=== PATIENT | female | born 1975 | race Caucasian/White ===

== ENCOUNTER 2020-11-26 15:18 | Outpatient (REF) | payer OTHER, SELFPAY | END 2020-11-26 15:19 | disposition home or self-care (01) | LOC: HO.LAB 15:18 | PROVIDERS: PCP Hospitalist; Visit Provider Internal Medicine | DX: Z20.828 Contact with and (suspected) exposure to other viral communicable diseases (principal) | CPT/HCPCS: C9803; U0003 ==

== ENCOUNTER 2020-12-15 08:46 | Outpatient (REF) | payer OTHER, SELFPAY ==
[2020-12-15 10:53] LABS: Hematocrit 39.9 % (37-47); Hemoglobin 12.4 g/dl (12.0-16.0); Mean Corpuscular HGB Conc 31.1 g/dl (31.0-35.0); Mean Corpuscular Hemoglobin 27.1 pg (27.0-33.0); Mean Corpuscular Volume 87.3 fL (80-98); Mean Platelet Volume 11.4 fL (9.4-12.3); Platelet Count 312 X10*3/uL (160-400); Red Blood Count 4.57 X10*6/uL (4.20-5.50); Red Cell Distribution Width 15.3 % (11.0-16.0); White Blood Count 8.6 X10*3/uL (4.8-10.8)
[2020-12-15 11:18] LABS: Alanine Aminotransferase 16 U/L (0-31); Albumin Level 3.8 g/dL (3.5-5.0); Alkaline Phosphatase 96 U/L (39-117); Anion Gap 15 (12-20); Aspartate Amino Transferase 7 U/L (5-31); Bilirubin Direct 0.2 mg/dL (0.0-0.5); Bilirubin Total 0.3 mg/dL (0.0-1.0); Blood Urea Nitrogen 8 mg/dL (9-16); Calcium 9.2 mg/dL (8.4-10.2); Carbon Dioxide 25 mmol/L (22-29); Chloride 103 mmol/L (96-108); Cholesterol 193 mg/dL; Estimated Glomerular Filt Rate > 60; Glucose Fasting 182 mg/dL (60-99); HDL Cholesterol 45 mg/dL; LDL Cholesterol Calculated 105 mg/dl; Potassium 4.8 mmol/l (3.3-5.1); Sodium 138 mmol/L (135-145); Total Protein 6.6 g/dL (6.5-8.0); Triglycerides 219 mg/dL
[2020-12-15 11:40] LABS: TSH reflex Free T4 2.06 mIU/mL (0.32-4.0)
[2020-12-15 12:02] LABS: Creatinine Urine 69.43 mg/dL
== END 2020-12-15 08:47 | disposition home or self-care (01) ==
LOC: HO.WFDLDS 08:46
PROVIDERS: Visit Provider Hospitalist
DX: Z00.00 Encounter for general adult medical examination without abnormal findings (principal); E11.65 Type 2 diabetes mellitus with hyperglycemia
CPT/HCPCS: 36415; 80048; 80061; 80076; 82043; 84443; 85027

== ENCOUNTER 2021-09-03 10:32 | Outpatient (REF) | payer OTHER, SELFPAY ==
--- NOTE | ~2021-09-03 | XR_ITS ---
EXAMINATION: XR ELBOW, RIGHT CLINICAL INFORMATION: Pain COMPARISON: None TECHNIQUE: AP, lateral, and oblique views of the right elbow. FINDINGS: Bone alignment is normal. No acute fracture or dislocation is seen. There is a small soft tissue calcification or ossification adjacent to the medial proximal ulna. This is appreciated on the AP view only. Joint space are normal. There is no joint effusion. XR/XR elbow RT min 3V IMPRESSION: No acute fracture or dislocation. Small soft tissue calcification or ossification adjacent to the medial proximal humerus.
[2021-09-03 14:29] LABS: Estimated Average Glucose 235 mg/dL; Hemoglobin A1c % 9.8 %
== END 2021-09-03 10:33 | disposition home or self-care (01) ==
LOC: HO.WFDLDS 10:32
PROVIDERS: PCP Hospitalist; Visit Provider Hospitalist
DX: E11.65 Type 2 diabetes mellitus with hyperglycemia (principal); M25.521 Pain in right elbow
CPT/HCPCS: 36415; 73080; 83036

== ENCOUNTER → 2021-10-08 10:02 | Outpatient (BNVA) | payer OTHER, SELFPAY | PROVIDERS: PCP Hospitalist; Visit Provider Physician Assistant | DX: Z87.39 Personal history of other diseases of the musculoskeletal system and connective tissue (principal) | CPT/HCPCS: 99202 ==

== ENCOUNTER 2021-10-13 12:26 | Outpatient (REF) | payer OTHER, SELFPAY ==
[2021-10-13 14:31] LABS: Estimated Average Glucose 214 mg/dL; Hemoglobin A1c % 9.1 %
== END 2021-10-13 12:27 | disposition home or self-care (01) ==
LOC: HO.WFDLDS 12:26
PROVIDERS: Visit Provider Hospitalist
DX: E11.65 Type 2 diabetes mellitus with hyperglycemia (principal)
CPT/HCPCS: 36415; 83036

== ENCOUNTER → 2021-11-04 13:25 | Outpatient (BNVA) | payer OTHER, SELFPAY | PROVIDERS: PCP Hospitalist; Visit Provider Orthopaedic Surgery | DX: M65.312 Trigger thumb, left thumb (principal) | CPT/HCPCS: 99202 ==

== ENCOUNTER 2021-11-12 07:30 | Outpatient (RCR) | payer OTHER, SELFPAY ==
--- NOTE | 2021-10-16 15:00 | MHC.OT.OEV ---
[address] [phone] F: [phone] Occupational Therapy Evaluation Diagnosis: Right lateral epicondlyitis Date of Onset: 08/28/21 Attending Provider: ROCIO Hollins Prescribed Treatment: Eval and Treat MD Follow Up Appointment: History of Current Condition: 46 yo female developed pain in her right lateral elbow, worse over the past two months. She was seen by PCP and then referred to [facility]. Gurvinder has given counter force brace and Celebrex and referred to OT. 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, occasional driving and out at field sits Living Situation, Family and/or Social Support: Lives w/ boyfriend and two older children (20's) Current Level of Function and Occupation Self Care, Employment, Leisure: Still does most daily activities, uses dominant left hand/arm and avoids heavy use of right arm Pain Assessment Pain Score: Pain Scale Used: Numeric (0 - 10) Pain Location and Description: 7/10 sharp shooting in right lateral elbow Aggravating Factors: Grasp objects, lifting objects or bags, using the mouse at work Alleviating Factors: Started Celebrex, wears CFB (no positive affect to this point) Massages elbow Nerve assessment Ulnar Nerve: WNL Median Nerve: WNL Radial Nerve: WNL Sensory Assessment Temperature: WNL Light Touch: WNL Proprioception: WNL Edema Assessment Comments: Mild palpable edema to lateral epi/slightly distal to lat epi Dexterity Assessment Dexterity: WNL Special Tests Comments: (+) Cozen's test AROM(PROM) Strength Shoulder Flexion: Extension: Abduction: Internal Rotation: External Rotation: Comments: WFL Flexion: Extension: Abduction: Internal Rotation: External Rotation: Comments: Elbow Flexion: Extension: Pronation: Supination: Comments: WFL Flexion: Extension: Pronation: Supination: Comments: Wrist Flexion: Extension: Ulnar Deviation: Radial Deviation: Comments: WFL Flexion: Extension: Ulnar Deviation: Radial Deviation: Comments: Thumb Thumb CMC Flexion: Thumb MCP Flexion: Thumb IP Flexion: Radial Abduction: Palmar Abduction: Lowes (Kapandji 0-10): Comments: Pt reporting left thumb trigger (worse at night) Digits Index MCP: PIP: DIP: Long MCP: PIP: DIP: Ring MCP: PIP: DIP: Small MCP: PIP: DIP: Comments: WFL Gross Grasp: R 20 L 26 Lateral Pinch: Two-Point Pinch: Three-Jaw Jay Jay: Comments: Pain increases w/ elbow extension Patient Education Primary Language: Malay Hebrew Cantor Required: No Current Knowledge: Understands information with skills for self-management Teaching Method: Demonstration Handouts Verbal Education Needs Identified on Evaluation: ADL's Disease Information Equipment Use Exercise Pain Safety How did patient/family demonstrate learning? Patient demonstrates Patient verbalizes Barriers to Learning: None Readiness for Learning: Accepting Who was educated? Patient Comments: Plan of Care Assessment: 46 yo left hand dominant female presents w/ persistent right lateral elbow pain over the past couple months, worsened with lifting, gripping, mousing and general use of right arm. She has (+) Cozen's test, tenderness to palpate lateral epicondyle and low hiv prevention specialist strength. All s/s consistent w/ acute lateral epicondylitis. She will benefit from course of OT for management of pain, edema and progression of strengthening for optimal gains. 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
--- NOTE | 2021-11-12 08:16 | MHC.OT.DC ---
[address] [phone] F: [phone] Occupational Therapy Discharge Note Provider: Gurvinder Dominguez PA-C Diagnosis: Right lateral epicondlyitis Date of Evaluation: 10/16/21 Date of Discharge: 11/12/21 Treatments to Date: 9 Discharge Status: Achieved Goals Improved Function Independent with HEP Discharge Summary: Martha has overall decreased pain in right lateral elbow, still present w/ full elbow extension and forceful gripping. She is doing well w/ modifications and awareness of aggravating factors, she is Ind w/ home program. Electronically Signed By: VALENTINE Kuo/Arun CHT Reviewed/agree with student documentation: N/A Therapist: Please Sign and return to therapist, thank you for your referral.
== END 2021-11-12 08:26 | disposition home or self-care (01) ==
LOC: HO.OT 07:30
PROVIDERS: PCP Hospitalist; Visit Provider Physician Assistant
DX: Z87.39 Personal history of other diseases of the musculoskeletal system and connective tissue (principal)
CPT/HCPCS: 97033; 97110; 97140; 97165

== ENCOUNTER 2021-11-12 09:29 | Outpatient (REF) | payer OTHER, SELFPAY ==
[2021-11-12 11:16] LABS: Estimated Average Glucose 200 mg/dL; Hemoglobin A1c % 8.6 %
== END 2021-11-12 09:30 | disposition home or self-care (01) ==
LOC: HO.WFDLDS 09:29
PROVIDERS: Visit Provider Hospitalist
DX: E11.65 Type 2 diabetes mellitus with hyperglycemia (principal)
CPT/HCPCS: 36415; 83036

== ENCOUNTER 2022-03-14 08:48 | Emergency (ER) | payer OTHER, SELFPAY ==
[2022-03-14 09:04] VITALS: BP 142/84; PULSE 110; RESP 20; TEMP 36.8; O2SAT 96; BMI 41.3
[2022-03-14] MEDS: Albuterol Sulfate 90 MCG 8 GM INHALER 2 PUFF INHALE (10:23)
[2022-03-14 10:24] VITALS: PULSE 110; RESP 20; O2SAT 96
[2022-03-14 10:34] LABS: Strep A Nucleic Acid Negative (Negative)
[2022-03-14 10:44] LABS: IDNOW Serial# 08D9AD1C; Influenza A Negative (Negative); Influenza B2 Negative (Negative)
[2022-03-14 10:47] LABS: IDNOW Serial# 55D5AD1C
[2022-03-14 10:48] LABS: COVID-19 Test Negative (Negative)
--- NOTE | 2022-03-14 11:17 | ED.GENADULT ---
HPI - General Adult General Chief complaint: General Medical Stated complaint: Cough/Congestion/Sinus infection? Time Seen by Provider: 03/14/22 09:26 Source: patient Mode of arrival: ambulatory Limitations: no limitations History of Present Illness HPI narrative: 36-year-old female presents with fatigue, body aches, itchy throat, cough, runny nose, mild fever at home that started 6 days ago. In addition, patient has of painful left upper loose tooth, she has an appointment with a dentist for an extraction upcoming. No chest pain, no shortness of breath. Related Data Home Medications Medication Instructions Recorded Confirmed blood-glucose meter #1 ea 10/01/20 11/12/21 Previous Rx's Medication Instructions Recorded clotrimazole 1 % topical cream 1 appl TOPICAL BID 28 Days #45 g 04/09/21 blood sugar diagnostic (FreeStyle #200 ea 05/07/21 Lite Strips) lancets 28 gauge #100 ea 09/07/21 lisinopril 10 mg tablet 10 mg PO DAILY #90 tab 10/02/21 glipizide 10 mg tablet 20 mg PO BID #120 tab 10/12/21 atorvastatin 20 mg tablet 20 mg PO DAILY #90 tab 10/13/21 cholecalciferol (vitamin D3) 25 25 mcg PO DAILY #30 cap 10/18/21 mcg (1,000 unit) capsule (Vitamin D3) naproxen 500 mg tablet 500 mg PO BID #60 tab 01/13/22 sitagliptin 25 mg tablet 50 mg PO DAILY 30 Days #60 tab 02/05/22 clindamycin HCl 300 mg capsule 600 mg PO Q6H 10 Days #80 cap 03/14/22 Allergies Allergy/AdvReac Type Severity Reaction Status Date / Time No Known Allergies Allergy Verified 11/12/21 08:43 Review of Systems Constitutional: Constitutional: Reports body ache(s), Denies chills, Reports fatigue, Reports fever(s), Denies headache(s), Denies malaise and Denies weakness Eyes: Eyes: Denies diplopia ENT: Reports dental pain, Denies vertigo, Denies dizziness, Denies otalgia, Reports facial pain, Denies headache(s), Denies mouth pain, Denies post nasal drip, Denies sinus pain, Denies sinus pressure, Reports sore throat and Denies throat swelling Cardiovascular: Cardiovascular: Denies chest pain, Denies syncope, Denies leg edema, Denies lightheadedness, Denies Loss of Consciousness, Denies palpitations and Denies dyspnea Respiratory: Respiratory: Denies chest congestion, Reports cough and Denies dyspnea Gastrointestinal: Gastrointestinal: Denies abdominal pain, Denies hematochezia, Denies constipation, Denies diarrhea, Denies nausea and Denies vomiting Genitourinary: Genitourinary: Reports no additional female genitourinary complaints Musculoskeletal: Musculoskeletal: Reports myalgias Neurologic: Denies confusion, Denies vertigo, Denies dizziness, Denies syncope, Denies headache(s) and Denies weakness Psychiatric: Psychiatric: Denies anxiety, Denies confusion and Denies depression Endocrine: Endocrine: Reports fatigue and Denies palpitations Allergic/Immunologic: Allergic/Immunologic: Denies throat swelling PMFSH Past Medical History Medical History Arthritis of both knees Diabetes Hyperlipidemia Hypertension Surgical History History of section History of cholecystectomy History of tubal ligation S/P trigger finger release Family History Family History Father Medical history unknown Mother Hypertension Son Asthma Social History Social History Housing: House Patient Tobacco Use Status: Former Tobacco user e-Cigarette/Vaping Use: Never Used Second Hand Smoke Exposure: No Advance Directives: No Advance Directives Information Provided: No Patient : No service: No Current occupational status: employed Current occupation: [employer] Cognitive needs: No Hearing needs: No Vision needs: No Physical Exam ED Vital Signs: Vital Signs - 24 hr 03/14/22 09:04 03/14/22 10:24 Temperature 98.3 F Pulse Rate 110 H 110 H Respiratory Rate 20 20 Blood Pressure 142/84 H Pulse Oximetry 96 BMI result Body Mass Index 41.3 Const General: no acute distress, well developed, alert and awake; No confusion Nutritional Appearance: obese Orientation/consciousness: patient oriented x3 and No confusion Limitations: no limitations HENMT Head: Yes normal to inspection, Yes normocephalic and Yes atraumatic Ears: hearing grossly normal bilaterally, external ears normal, TM's normal bilaterally and EAC's normal General nose exam: Normal external nose present Face and sinus: Yes normal facial exam Mouth: Normal oral and palatal mucosa present and moist mucous membranes Teeth and gingiva: gingiva normal and poor dentition Teeth image: 1. loose, tender Throat: Yes postnasal drainage Eyes Conjunctivae: conjunctivae normal Sclerae: sclerae normal Pupils: Equal, round and reactive pupils present EOM: EOMs intact bilaterally Neck Neck: Yes normal visual inspection, Yes full ROM, Yes no lymphadenopathy, Yes no meningeal signs, Yes trachea midline and Yes supple Resp Effort & Inspection: normal respiratory effort and able to speak in complete sentences Auscultation: clear to auscultation bilaterally, no crackles, no rales, no rhonchi and no wheezes Cardio Rate: regular rate Rhythm: regular rhythm GI Inspection: Yes normal to inspection Palpation (GI): Soft to palpation, not firm, nontender, no guarding and not rigid Skin General skin exam: no rashes or lesions noted Neuro General: patient oriented x3, no meningeal signs and No confusion Cranial nerves: Yes Equal, round and reactive pupils present Extrem General: Yes normal to inspection and Yes full ROM Course Course Course Narrative: Patient is negative for strep, flu, COVID, patient loosened tender tooth 13. No abscess noted in mouth, patient can open her jaw all the way, no trismus, no facial swelling, no lymphadenopathy, no drooling. Will start on clindamycin, counseled patient to follow-up with dentist Medical Decision Making Lab Data Labs: Lab Results 03/14/22 03/14/22 03/14/22 Range/Units 10:10 10:10 10:10 COVID-19 (KIAN) Negative (Negative) COVID-19 Clin Com See Note Influenza Type A (BECKY) Negative (Negative) Influenza Type B (BECKY) Negative (Negative) Influenza A & B Note See Note S. pyogenes GrpA BECKY Negative (Negative) Discharge Plan Discharge Clinical Impression: Upper respiratory infection, viral, Abscess, dental Patient Disposition: Home, Self-Care Instructions: Dental Abscess (ED), Upper Respiratory Infection (ED) Additional Instructions: Please call your dentist for follow-up appointment. Please take antibiotics as prescribed. Use salt water gargles, Tylenol, ibuprofen, if you have fevers, few cannot open your mouth, if you have any other new or concerning symptoms, please return to emergency room Prescriptions: New clindamycin HCl 300 mg capsule 600 mg PO Q6H 10 Days Qty: 80 0RF No Action (DME) FreeStyle Lite Strips Strip See Rx Instructions .ROUTE .MEDSUPPLY Qty: 200 4RF Rx Instructions: DX: E11.9. Test Blood Sugar Twice A Day. 90 day supply (DME) lancets 28 gauge misc See Rx Instructions ea topical BID Qty: 100 5RF Rx Instructions: glucose checks 2 times daily lisinopril 10 mg tablet 10 mg PO DAILY Qty: 90 1RF glipizide 10 mg tablet 20 mg PO BID Qty: 120 1RF cholecalciferol (vitamin D3) [Vitamin D3] 25 mcg (1,000 unit) capsule 25 mcg PO DAILY Qty: 30 5RF naproxen 500 mg tablet 500 mg PO BID Qty: 60 2RF sitagliptin 25 mg tablet 50 mg PO DAILY 30 Days Qty: 60 5RF clotrimazole 1 % cream 1 appl topical BID 28 Days Qty: 45 1RF (DME) blood-glucose meter Kit See Rx Instructions ea .ROUTE BID Qty: 1 0RF Rx Instructions: As directed atorvastatin 20 mg tablet 20 mg PO DAILY Qty: 90 1RF Stand Alone Forms: Work/School Release
[2022-03-14 11:30] VITALS: BP 171/93; PULSE 104; RESP 18; O2SAT 98
== END 2022-03-14 11:37 | disposition home or self-care (01) ==
PROVIDERS: Physician Assistant; Emergency Provider Emergency Medicine; PCP Hospitalist
DX: J06.9 Acute upper respiratory infection, unspecified (principal); K04.7 Periapical abscess without sinus; E11.9 Type 2 diabetes mellitus without complications; I10 Essential (primary) hypertension; Z20.822 Contact with and (suspected) exposure to COVID-19
CPT/HCPCS: 87502; 87635; 87651; 94640; 94664; 99283; 99284

== ENCOUNTER 2022-11-25 15:38 | Outpatient (REF) | payer OTHER, SELFPAY ==
--- NOTE | ~2022-11-25 | MM_ITS ---
EXAMINATION: MM SCREENING DIGITAL BREAST TOMOSYNTHESIS, BILATERAL CLINICAL INFORMATION: Screening. Asymptomatic. The lifetime risk of breast cancer based on the Tyrer-Cuzick Model is 8.4%. COMPARISON: Mammography: March 16, 2019 and studies dating back to November 14, 2015 TECHNIQUE: Digital breast tomosynthesis is performed in both the craniocaudal and mediolateral oblique views along with computer-aided detection (CAD). Synthesized 2D images are generated from the tomosynthesis. FINDINGS: The breasts are extremely dense, which lowers the sensitivity of mammography (ACR BI-RADS breast composition Category d). There are no significant masses, abnormal calcifications, or other abnormalities. MM/MM tomosynthesis screening BI IMPRESSION: No significant changes from prior exam. ASSESSMENT: BI-RADS 1: Negative RECOMMENDATION: Routine annual mammography screening. This patient's information was entered into a reminder system with a target due date for their next mammogram.
== END 2022-11-25 15:39 | disposition home or self-care (01) ==
LOC: HO.MAMMO 15:38
PROVIDERS: PCP Hospitalist; Visit Provider Hospitalist
DX: Z12.31 Encounter for screening mammogram for malignant neoplasm of breast (principal)
CPT/HCPCS: 77063; 77067

== ENCOUNTER 2023-02-14 10:24 | Outpatient (REF) | payer OTHER, SELFPAY ==
[2023-02-14 12:19] LABS: Estimated Average Glucose 232 mg/dL; Hemoglobin A1c % 9.7 %
== END 2023-02-14 10:25 | disposition home or self-care (01) ==
LOC: HO.WFDLDS 10:24
PROVIDERS: Visit Provider Hospitalist
DX: E11.65 Type 2 diabetes mellitus with hyperglycemia (principal)
CPT/HCPCS: 36415; 83036

== ENCOUNTER 2023-12-01 15:31 | Outpatient (REF) | payer OTHER, SELFPAY | END 2023-12-01 15:32 | disposition home or self-care (01) | LOC: HO.MAMMO 15:31 | PROVIDERS: PCP Nurse Practitioner Family; Visit Provider Hospitalist | DX: Z12.31 Encounter for screening mammogram for malignant neoplasm of breast (principal) | CPT/HCPCS: 77063; 77067 ==

== ENCOUNTER → 2023-12-01 15:45 | Outpatient (BNV) | payer OTHER, SELFPAY | PROVIDERS: PCP Nurse Practitioner Family; Visit Provider Radiology Diagnostic Radiology | DX: Z12.31 Encounter for screening mammogram for malignant neoplasm of breast (principal) | CPT/HCPCS: 77063; 77067 ==

== ENCOUNTER 2024-03-12 11:34 | Outpatient (AMB) | payer OTHER, SELFPAY ==
[2024-03-12 11:44] VITALS: BP 120/72; PULSE 84; O2SAT 98; BMI 37.8
--- NOTE | 2024-03-12 11:44 | A.OFFPC_ITS ---
Vital Signs 03/12/24 11:44 Height 4 ft 11 in Weight 187 lb 6 oz BMI 37.8 BP 120/72 Pulse 84 Pulse Source Pulse Oximeter Pulse Oximetry (%) 98 Oxygen Delivery Method Room Air Intake Visit Reasons: Transfer from , follow up on Diabetes Intake Note: Patient is here as a transfer of care from [facility]. Allergies No Known Allergies Allergy (Verified 03/12/24 11:46) Medication List - Last Reconciled 03/12/24 by Braden Scott MD atorvastatin 20 mg PO DAILY blood sugar diagnostic (FreeStyle Lite Strips) DX: E11.9. Test Blood Sugar Twice A Day. 90 day supply blood-glucose meter As directed cholecalciferol (vitamin D3) (Vitamin D3) 25 mcg PO DAILY glipizide 20 mg (2 x 10 mg) PO BID 3 months lancets glucose checks 2 times daily and as needed for s/s of dm lisinopril 10 mg PO DAILY naproxen 500 mg PO BID semaglutide (Ozempic) 0.25 mg subcut QWEEK Tobacco use date assessed: 03/12/24 HPI Transfer from , follow up on Diabetes HPI Details New patient/Transfer of Care Prior PCP:? Last office visit/CPE: Acute issue(s): A1c 9.6% -Had recently started taking ozempic ins tead of Trulicity. -Had low blood sugars when she started T rulicity but she is on glipizide 20mg as well. PMHx: DM, HTN, HLD, Vit D def., Arthritis b/L knees SurgHx: x 2. GB. Tubal Ligation. R thumb surgery FHx: Mom: HLD, Arthritis. Dad: Unknown. SocHx: Smoking <1/2ppd. PFSH Medical History Hyperlipidemia Hypertension Diabetes Arthritis of both knees Surgical History S/P trigger finger release History of cholecystectomy History of tubal ligation History of section Family History Father Medical history unknown Mother Hypertension Son Asthma Social History Housing: House Patient Tobacco Use Status: Current everyday Tobacco user Cigarettes Per Day: 7 e-Cigarette/Vaping Use: Never Used Second Hand Smoke Exposure: No service: No Current occupational status: employed Current occupation: [employer] Cognitive needs: No Hearing needs: No Vision needs: No Questionnaire PHQ-9 Over the last 2 weeks, how often have you been bothered by any of the following problems? 1. Little interest or pleasure in doing things: several days 2. Feeling down, depressed, or hopeless: several days 3. Trouble falling or staying asleep, or sleeping too much: more than half the days 4. Feeling tired or having little energy: not at all 5. Poor appetite or overeating: several days 6. Feeling bad about yourself - or that you are a failure or have let yourself or your family down: not at all 7. Trouble concentrating on things, such as reading the newspaper or watching television: several days 8. Moving or speaking so slowly that other people could have noticed. Or the opposite - being so fidgety or restless that you have been moving around a lot more than usual: not at all 9. Thoughts that you would be better off or of hurting yourself in some way: not at all Total score: 6 Depression Screening Interpretation: Positive Depression Screening Done: Yes 95395 - PHQ-9 Billing: Yes Source: Developed by Drs. Scar Boone, Delfina Marquis, Gurinder Bradley and colleagues, with an educational niki from [employer]. Thrive Questionnaire Date Thrive assessed: 03/12/24 I am a: Patient What is your living situation today?: I have a steady place to live Within the past 12 months, did the food you bought not last and you didn't have the money to get more?: Never true Within the past 12 months, did you worry whether your food would run out before you got money to buy more?: Never true Do you have trouble paying for medicines?: Yes Do you have trouble getting transportation to medical appointments?: No Do you have trouble paying your heating and electricity bill?: No Do you have trouble taking care of your child, family member or friend?: No Do you have trouble with day-to-day activities such as bathing, preparing meals, shopping, managing finances, etc.?: No Are you currently unemployed and looking for a job?: No Are you interested in more education?: No THRIVE Score: 0 AUDIT C Alcohol Use Questionnaire (AUDIT-C) 1. How often do you have a drink containing alcohol?: Monthly or less 2. How many drinks containing alcohol do you have on a typical day when you are drinking?: 1 or 2 3. How often do you have six or more drinks on one occasion?: Never Total Score: 1 YARIEL-7 AMB Questionnaire YARIEL-7 Date YARIEL - 7 assessed: 03/12/24 Feeling nervous, anxious, or on edge: 3 = Nearly every day Not being able to stop or control worryin = Nearly every day Worrying too much about different things: 3 = Nearly every day Trouble relaxin = Nearly every day Being so restless that it is hard to sit still: 0 = Not at all Becoming easily annoyed or irritable: 3 = Nearly every day Feeling afraid as if something awful might happen: 0 = Not at all Total YARIEL-7 score (0-4 normal; 5-9 mild; 10-14 moderate; 15-21 severe): 15 Source: Developed by Drs. Scar Boone, Delfina Marquis, Gurinder Bradley and colleagues, with an educational niki from [employer]. YARIEL-7 Assessment Billing YARIEL-7 Assessment Tool: YARIEL-7 Assessment 45871 Review of Systems Const Denies chills, Denies fatigue, Denies fever(s), Denies headache(s) and Denies weakness ENT Denies dizziness and Denies headache(s) Card Denies dyspnea Resp Denies cough, Denies dyspnea, Denies wheezing and Denies other (shortness of breath) Musc Denies numbness and Denies tingling Neuro Denies dizziness, Denies headache(s), Denies numbness, Denies tingling and Denies weakness Psych Reports anxiety Endo Denies fatigue, Reports polydipsia and Reports polyuria Aller/Immun Denies wheezing Physical exam (Primary Care) BMI result Body Mass Index 37.8 Tobacco/Smoking Status: Tobacco use Status Tobacco use date assessed 09/03/21 03/12/24 11:47 Patient Tobacco Use Status Former Tobacco user 03/12/24 11:47 e-Cigarette/Vaping Use Never Used 03/12/24 11:47 PHQ-9: PHQ-9 Score PHQ-9: Total score 6 03/12/24 11:54 Depression Screening Interpretation: Positive Thrive Assessment: Date of Thrive Assessment Date Thrive assessed 11/12/21 03/12/24 11:47 Const General: well developed; No acute distress Nutritional Appearance: well nourished Orientation/consciousness: patient oriented x3 HENMT Head: Yes normocephalic and Yes atraumatic Eyes General: appearance normal, both eyes and all related structures Pupils: Equal, round and reactive pupils present EOM: EOMs intact bilaterally Resp Effort & Inspection: normal respiratory effort Auscultation: clear to auscultation bilaterally Cardio Rate: regular rate Rhythm: regular rhythm Heart sounds: S1 normal heart sound present, S2 normal heart sound present, no gallops, no murmurs and no rubs Neuro General: patient oriented x3 and gait normal Cranial nerves: Yes Equal, round and reactive pupils present Psych Affect: normal affect Assessment and Plan Assessment & Plan (1) Diabetes: Code(s): E11.9 - Type 2 diabetes mellitus without complications Plan: Uncontrolled?diabetes?though?she?did?just?start?taking?Ozempic?rather?than?[facility]. Had?had?some?low?blood?sugars?[facility] Currently,?morning?blood?sugars?are?in high?200s Continue?current?medication?regimen.??Eat?regular?meals - diabetic?diet, and?we?will?adjust?her?medications?rather?than?meals. Call?endocrinology?to?make?an?appointment Close?follow-up?in?a?month (2) Hypertension: Code(s): I10 - Essential (primary) hypertension Plan: Blood?pressure?is?controlled.??Goal?is?less?than?140/90 Continue?lisinopril (3) Hyperlipidemia: Code(s): E78.5 - Hyperlipidemia, unspecified Plan: On?atorvastatin Check?lipid (4) Obesity (BMI 30-39.9): Code(s): E66.9 - Obesity, unspecified Plan: Encouraged?weight?loss Will?follow Continue?Ozempic (5) Vitamin D deficiency: Code(s): E55.9 - Vitamin D deficiency, unspecified Plan: Check?vitamin-D?level (6) Anxiety: Code(s): F41.9 - Anxiety disorder, unspecified Plan: Trial?bupropion?which?may?also?help?with?smoking?cessation (7) Smoker: Code(s): F17.200 - Nicotine dependence, unspecified, uncomplicated Plan: Smoking?less?than?half?pack?per?day Trial?bupropion Trial?Nicorette?lozenges (8) Arthritis of both knees: Code(s): M17.0 - Bilateral primary osteoarthritis of knee Plan: We?can?discuss?further?at?upcoming?appointment Encouraged?weight (9) Laboratory exam ordered as part of routine general medical examination: Code(s): Z00.00 - Encounter for general adult medical examination without abnormal findings Plan: Check?lab Orders: Orders Comprehensive [place]. Panel Fast Today Z00.00 - Encounter for general adult medical examination without abnormal findings Lipid Panel Today Z00.00 - Encounter for general adult medical examination without abnormal findings Microalbumin, Random (w Creat) Today I10 - Essential (primary) hypertension TSH reflex Free T4 Today Z00.00 - Encounter for general adult medical examination without abnormal findings UA and rflx microscopic Today Z00.00 - Encounter for general adult medical examination without abnormal findings Vitamin D 25-OH Total Today E55.9 - Vitamin D deficiency, unspecified Medications: New bupropion HCl 75 mg PO QAM 30 days 30 tabs 1RF nicotine (polacrilex) (Nicorette) 2 mg buccal Q8H 28 days PRN 72 ea 1RF nicotine cravings Coding Level of Care Code Est Pt Level 4 (07873) Diagnoses Diabetes E11.9 Hypertension I10 Hyperlipidemia E78.5 Obesity (BMI 30-39.9) E66.9 Vitamin D deficiency E55.9 Anxiety F41.9 Smoker F17.200 Arthritis of both knees M17.0 Laboratory exam ordered as part of routine general medical examination Z00.00 Additional Codes YARIEL-7 Assessment Billing - YARIEL-7 Assessment Tool: YARIEL-7 Assessment [id number] ([id number])
== END 2024-03-12 12:46 | disposition home or self-care (01) ==
PROVIDERS: PCP Nurse Practitioner Family; Visit Provider Family Medicine
DX: E11.69 Type 2 diabetes mellitus with other specified complication (principal); E66.9 Obesity, unspecified; Z68.37 Body mass index [BMI] 37.0-37.9, adult; I10 Essential (primary) hypertension; F41.9 Anxiety disorder, unspecified; E78.5 Hyperlipidemia, unspecified; E55.9 Vitamin D deficiency, unspecified; F17.210 Nicotine dependence, cigarettes, uncomplicated; M17.0 Bilateral primary osteoarthritis of knee
CPT/HCPCS: 96127; 99214

== ENCOUNTER 2024-03-12 12:34 | Outpatient (REF) | payer OTHER, SELFPAY ==
[2024-03-12 13:56] LABS: Appearance Urine Clear; Color Urine Dark Yellow; Glucose Urine UA Negative (Negative); Leukocyte Esterase Urine Negative (Negative); Nitrite Urine Negative (Negative); PH 5.5 (5.0-9.0); Specific Gravity - Urine 1.025 (1.005-1.025); Urine Blood Negative (Negative); Urine Ketones Negative (Negative); Urine Protein Negative (Neg-Trace)
[2024-03-12 14:19] LABS: Creatinine Urine 233.75 mg/dL; Microalbum/Creatinine Ratio Ur 7.7 ug/mg cr (<30)
[2024-03-12 14:25] LABS: Alanine Aminotransferase 21 U/L (0-31); Alkaline Phosphatase 137 U/L (39-117); Anion Gap 11 (12-20); Aspartate Amino Transferase 10 U/L (5-31); Bilirubin Total 0.4 mg/dL (0.0-1.0); Blood Urea Nitrogen 12 mg/dL (9-16); Calcium 10.2 mg/dL (8.4-10.2); Carbon Dioxide 24 mmol/L (22-29); Chloride 107 mmol/L (96-108); Cholesterol 212 mg/dL (<200); Estimated Glomerular Filt Rate > 60; Glucose Fasting 179 mg/dL (60-99); HDL Cholesterol 42 mg/dL (>40); LDL Cholesterol Calculated 123 mg/dL (<100); Sodium 138 mmol/L (135-145); Total Protein 7.1 g/dL (6.5-8.0); Triglycerides 239 mg/dL (<150)
[2024-03-12 14:41] LABS: TSH reflex Free T4 1.22 uIU/mL (0.32-4.0); Vitamin D 25-OH Total 35.9 ng/mL (>30)
== END 2024-03-12 12:35 | disposition home or self-care (01) ==
LOC: HO.WFDLDS 12:34
PROVIDERS: Visit Provider Family Medicine
DX: Z00.00 Encounter for general adult medical examination without abnormal findings (principal); I10 Essential (primary) hypertension; E55.9 Vitamin D deficiency, unspecified
CPT/HCPCS: 36415; 80053; 80061; 81003; 82043; 82306; 82570; 84443

== ENCOUNTER 2024-04-12 13:53 | Outpatient (AMB) | payer OTHER, SELFPAY ==
[2024-04-12 14:03] VITALS: BP 120/74; PULSE 87; O2SAT 98; BMI 37.9
--- NOTE | 2024-04-12 14:03 | A.OFFPC_ITS ---
Vital Signs 04/12/24 14:03 Height 4 ft 11 in Weight 187 lb 8 oz BMI 37.9 BP 120/74 Blood Pressure Location Lt brachial Position Sitting Pulse 87 Pulse Source Pulse Oximeter Pulse Oximetry (%) 98 Oxygen Delivery Method Room Air Intake Visit Reasons: CPE with f/u labs and health maint. Intake Note: Patient is here for her physical today, and to follow up on labs. Allergies No Known Allergies Allergy (Verified 04/12/24 14:06) Medication List - Last Reconciled 04/12/24 by Braden Scott MD atorvastatin 20 mg PO DAILY blood sugar diagnostic (FreeStyle Lite Strips) DX: E11.9. Test Blood Sugar Twice A Day. 90 day supply blood-glucose meter As directed bupropion HCl 75 mg PO QAM 30 days cholecalciferol (vitamin D3) (Vitamin D3) 25 mcg PO DAILY glipizide 20 mg (2 x 10 mg) PO BID 3 months lancets glucose checks 2 times daily and as needed for s/s of dm lisinopril 10 mg PO DAILY naproxen 500 mg PO BID nicotine (polacrilex) (Nicorette) 2 mg buccal Q8H PRN 28 days semaglutide (Ozempic) 0.25 mg subcut QWEEK Tobacco use date assessed: 04/12/24 Dental Screening Dental Screen Date: 04/12/24 Did you have a dental visit in the last 12 months?: Yes Did you have a dental problem in the last 6 months where you did not have access to dental care?: No Was dental information given to patient?: Patient has dentist HPI CPE with f/u labs and health maint. HPI Details 48 y/o female presents for a CPE with f/ u labs and health maintenance. Labs were drawn 03/12/24. Reviewed labs with pt. Triglycerides 239. TC 212. LDL 123. HDL 42. She is on artovastatin 20mg daily. Blood pressure today 120/74. She is on lisinopril 10mg daily. Pt notes last mammogram was normal. Last pap smear was at [facility] which she thinks was this year. She notes she thinks it was normal. She states she is in the process of reaching menopause. She notes night sweats, mood swings, difficulty sleeping. [facility] Medical History Hyperlipidemia Hypertension Diabetes Arthritis of both knees Surgical History S/P trigger finger release History of cholecystectomy History of tubal ligation History of section Family History (Updated 04/12/24 @ 14:09 by Camila Rodríguez CMA) Father Medical history unknown Mother Hypertension Son Asthma Social History Housing: House Patient Tobacco Use Status: Current everyday Tobacco user Cigarettes Per Day: 7 e-Cigarette/Vaping Use: Never Used Second Hand Smoke Exposure: No service: No Current occupational status: employed Current occupation: [employer] Cognitive needs: No Hearing needs: No Vision needs: No Questionnaire Thrive Questionnaire Date Thrive assessed: 03/12/24 YARIEL-7 AMB Questionnaire YARIEL-7 Date YARIEL - 7 assessed: 03/12/24 Source: Developed by Drs. Scar Boone, Delfina Marquis, Gurinder Bradley and colleagues, with an educational niki from [employer] Review of Systems Const Denies chills, Denies fatigue, Denies fever(s), Denies headache(s) and Denies weakness Eyes Denies change in vision ENT Denies dizziness, Denies headache(s), Denies hearing loss, Denies nasal con gestion, Denies sinus pain, Denies sinus pressure and Denies sore throat Card Denies chest pain, Denies lightheadedness, Denies dyspnea and Denies other (palpitations) Resp Denies cough, Denies dyspnea and Denies wheezing GI Denies abdominal pain, Denies melena, Denies hematochezia, Denies change in bowel habits, Denies dyspepsia and Denies nausea Denies hematuria and Denies dysuria Musc Denies abnormal gait, Denies myalgias, Denies arthralgias, Denies numbness and Denies tingling Skin/Breast Denies rash, Denies unusual bruising and Denies wounds Neuro Denies abnormal gait, Denies dizziness, Denies headache(s), Denies memory loss, Denies numbness, Denies Sensory deficit (Neuro), Denies tingling and Denies weakness Psych Denies anxiety, Denies depression and Denies memory loss Endo Denies cold intolerance, Denies fatigue, Denies heat intolerance, Denies polydipsia and Denies polyuria Herson/Lymph Denies easy bleeding and Denies easy bruising Aller/Immun Denies wheezing Physical exam (Primary Care) Vital Signs: Last Vital Signs Pulse 87 04/12/24 14:03 BP 120/74 04/12/24 14:03 Pulse Ox 98 04/12/24 14:03 Oxygen Delivery Method Room Air 04/12/24 14:03 BMI result Body Mass Index 37.9 Tobacco/Smoking Status: Tobacco use Status Tobacco use date assessed 04/12/24 04/12/24 14:12 Patient Tobacco Use Status Current everyday Tobacco 04/12/24 14:12 e-Cigarette/Vaping Use Never Used 04/12/24 14:12 Thrive Assessment: Date of Thrive Assessment Date Thrive assessed 03/12/24 04/12/24 14:12 Const General: no acute distress, well developed, alert and awake Nutritional Appearance: well nourished and obese Orientation/consciousness: patient oriented x3 HENMT Head: Yes normocephalic and Yes atraumatic Ears: hearing grossly normal bilaterally and TM's normal bilaterally General nose exam: Normal external nose present and Normal nares present Mouth: Normal oral and palatal mucosa present and moist mucous membranes Teeth and gingiva: dentition normal Throat: Yes posterior oropharynx normal Eyes General: appearance normal, both eyes and all related structures Pupils: Equal, round and reactive pupils present and Pupil accommodation reflex normal EOM: EOMs intact bilaterally Neck Neck: Yes normal visual inspection, Yes no lymphadenopathy and Yes trachea midline Thyroid: Thyroid normal Carotids: no bruits Lymphatic: no lymphadenopathy noted Chest Chest palpation & inspection: normal inspection of the chest Resp Effort & Inspection: normal respiratory effort Auscultation: clear to auscultation bilaterally Cardio Rate: regular rate Rhythm: regular rhythm Heart sounds: S1 normal heart sound present, S2 normal heart sound present, no gallops, no murmurs and no rubs Bruits: no abdominal aortic bruits and no carotid bruits GI Palpation (GI): No Abdominal aortic bruit present, Soft to palpation, nontender, No hepatosplenomegaly present and No Rebound tenderness present Auscultation: normal bowel sounds General: Yes no CVA tenderness Back/Spine/Pelvis Back: no CVA tenderness Cervical Spine: cervical ROM normal and No Cervical spine tenderness Thoracic/Lumbar Spine: thoraco-lumbar ROM normal, No pain with thoraco-lumbar ROM, No thoracic spinal tenderness and No lumbar spinal tenderness Skin Lesions: no lesions Rashes: no rashes Trauma: no lacerations or abrasions Wounds: no wounds Nails: normal Neuro General: patient oriented x3 Cranial nerves: Yes Equal, round and reactive pupils present Cognition (Neuro): normal cognition Gait exam (Neuro): Normal gait present Motor exam (neuro): 5/5 motor strength present throughout Sensory Exam: No Sensory deficit (Neuro) Deep tendon reflexes (DTR's): Right patellar reflex intensity grade: 2+ and Left patellar reflex intensity grade: 2+ Extrem General: Yes normal to inspection and No edema Psych Appearance: grossly normal Affect: normal affect Attitude: cooperative Thought process: Normal thought process present Assessment and Plan Assessment & Plan (1) Adult general medical exam: Code(s): Z00.00 - Encounter for general adult medical examination without abnormal findings Plan: 48-year-old?female?presents?for?complete?physical?exam Encouraged?healthy?diet?with?active?lifestyle?and?plenty?of?exercise (2) Hypertension: Code(s): I10 - Essential (primary) hypertension Plan: Blood?pressure?is?well?controlled.??Goal?is?less?than?140/90 Continue?current?medication?regimen (3) Diabetes: Code(s): E11.9 - Type 2 diabetes mellitus without complications Plan: A1c?had?been?poorly?controlled?when?checked?in?January She?had?had?difficulty?getting?Trulicity. Now?taking?Ozempic?and?tolerating?this.??She?can?call?for?an?increase?in?her?dos e?when?she?is?due?for?her?next?refill, if?she?is?tolerating?it?well. Blood?sugars?are?improving Recent?eye?exam (4) Screening for colon cancer: Code(s): Z12.11 - Encounter for screening for malignant neoplasm of colon Plan: Patient?had?colonoscopy?this?year?and?had?1?polyp?and?was?told?to?follow-up?in?5 ?years;?2028 Will?request?report (5) Hot flashes: Code(s): R23.2 - Flushing Plan: Her?on site wastewater systems technician?has?given?her?bupropion Follow-up?with?OBGYN (6) Screening for cervical cancer: Code(s): Z12.4 - Encounter for screening for malignant neoplasm of cervix Plan: Patient?had?Pap?smear?this?year?with?her?on site wastewater systems technician Follow-up?with?on site wastewater systems technician?as?recommend (7) Breast cancer screening by mammogram: Code(s): Z12.31 - Encounter for screening mammogram for malignant neoplasm of breast Plan: Mammogram?was?negative?for?malignancies?and?recommended?annual?screen (8) Elevated cholesterol with high triglycerides: Code(s): E78.2 - Mixed hyperlipidemia Plan: Increasing?atorvastatin?from?20?mg?daily?to?40?mg?daily Medications: Changed From atorvastatin 20 mg PO DAILY 90 tabs 3RF To atorvastatin 40 mg PO DAILY 90 days 90 tabs 3RF Coding Level of Care Code Est Pt Level 3 (26422) Est Pt Prev Care 40-64y(69511) Diagnoses Adult general medical exam Z00.00 Hypertension I10 Diabetes E11.9 Screening for colon cancer Z12.11 Hot flashes R23.2 Screening for cervical cancer Z12.4 Breast cancer screening by mammogram Z12.31 Elevated cholesterol with high triglycerides E78.2
== END 2024-04-12 15:04 | disposition home or self-care (01) ==
PROVIDERS: PCP Nurse Practitioner Family; Visit Provider Family Medicine
DX: Z00.00 Encounter for general adult medical examination without abnormal findings (principal); I10 Essential (primary) hypertension; E11.9 Type 2 diabetes mellitus without complications; R23.2 Flushing; E78.2 Mixed hyperlipidemia; Z12.11 Encounter for screening for malignant neoplasm of colon; Z12.31 Encounter for screening mammogram for malignant neoplasm of breast
CPT/HCPCS: 99213; 99396

== ENCOUNTER 2024-07-16 09:51 | Outpatient (AMB) | payer OTHER, SELFPAY ==
--- NOTE | 2024-07-16 09:55 | A.OFFPC_ITS ---
Vital Signs 07/16/24 09:59 Height 4 ft 11 in Weight 187 lb BMI 37.8 BP 120/60 Blood Pressure Location Rt brachial Position Sitting Respiration 16 Pulse 86 Pulse Source Pulse Oximeter Temp 98 F Temp Source Tympanic Pulse Oximetry (%) 96 Oxygen Delivery Method Room Air Intake Visit Reasons: f/u diabetes Intake Note: follow up for diabetes Allergies No Known Allergies Allergy (Verified 07/16/24 09:56) Medication List - Last Reconciled 07/16/24 by Braden Scott MD atorvastatin 40 mg PO DAILY 90 days blood sugar diagnostic (FreeStyle Lite Strips) DX: E11.9. Test Blood Sugar Twice A Day. 90 day supply blood-glucose meter As directed cholecalciferol (vitamin D3) (Vitamin D3) 25 mcg PO DAILY flash glucose scanning reader ([employer]ured SolutionsStyle Vahid 2 Mobile) To monitor glucose, As directed, 999 days flash glucose sensor (FreeStyle Vahid 2 Sensor kit) To monitor blood sugar continuously for 14 days, As directed glipizide 20 mg (2 x 10 mg) PO BID 3 months lancets glucose checks 2 times daily and as needed for s/s of dm lisinopril 10 mg PO DAILY naproxen 500 mg PO BID nicotine (polacrilex) (Nicorette) 2 mg buccal Q8H PRN 28 days semaglutide 1 mg (0.75 mL) subcut QWEEK 28 days Tobacco use date assessed: 04/12/24 Dental Screening Dental Screen Date: 04/12/24 HPI f/u diabetes HPI Details 48 y/o female presents to f/u diabetes. Last A1c in January 9.7% 2022. She had noted difficulty getting Trulicity and had started her on ozempic. A1c today 7.2%. Had noted episodes of low blood sugars in the evenings. Blood pressure today 120/60. She is on lisinopril 10mg daily. [facility] Medical History Hyperlipidemia Hypertension Diabetes Arthritis of both knees Surgical History S/P trigger finger release History of cholecystectomy History of tubal ligation History of section Family History (Updated 04/12/24 @ 14:09 by Camila Rodríguez CMA) Father Medical history unknown Mother Hypertension Son Asthma Social History (Reviewed 04/12/24 @ 14:08 by Camila Rodríguez [facility]) Housing: House Patient Tobacco Use Status: Current everyday Tobacco user Cigarettes Per Day: 7 e-Cigarette/Vaping Use: Never Used Second Hand Smoke Exposure: No service: No Current occupational status: employed Current occupation: [employer] Cognitive needs: No Hearing needs: No Vision needs: No Questionnaire Thrive Questionnaire Date Thrive assessed: 03/12/24 YARIEL-7 AMB Questionnaire YARIEL-7 Date YARIEL - 7 assessed: 03/12/24 Source: Developed by Drs. Scar Boone, Delfina Marquis, Gurinder Bradley and colleagues, with an educational niki from [employer]. Review of Systems Const Denies chills, Denies fatigue, Denies fever(s), Denies headache(s) and Denies weakness ENT Denies dizziness and Denies headache(s) Card Denies dyspnea Resp Denies cough, Denies dyspnea, Denies wheezing and Denies other (shortness of breath) Musc Denies numbness and Denies tingling Neuro Denies dizziness, Denies headache(s), Denies numbness, Denies tingling and Denies weakness Psych Denies anxiety and Denies depression Endo Denies fatigue Aller/Immun Denies wheezing Physical exam (Primary Care) Vital Signs: Last Vital Signs Temp 98 F 07/16/24 09:59 Pulse 86 07/16/24 09:59 Resp 16 07/16/24 09:59 BP 120/60 07/16/24 09:59 Pulse Ox 96 07/16/24 09:59 Oxygen Delivery Method Room Air 07/16/24 09:59 BMI result Body Mass Index 37.8 Tobacco/Smoking Status: Tobacco use Status Tobacco use date assessed 04/12/24 07/16/24 09:56 Patient Tobacco Use Status Current everyday Tobacco 07/16/24 09:56 e-Cigarette/Vaping Use Never Used 07/16/24 09:56 Thrive Assessment: Date of Thrive Assessment Date Thrive assessed 03/12/24 07/16/24 09:56 Const General: well developed; No acute distress Nutritional Appearance: obese Orientation/consciousness: patient oriented x3 HENMT Head: Yes normocephalic and Yes atraumatic Eyes General: appearance normal, both eyes and all related structures Pupils: Equal, round and reactive pupils present EOM: EOMs intact bilaterally Resp Effort & Inspection: normal respiratory effort Neuro General: patient oriented x3 and gait normal Cranial nerves: Yes Equal, round and reactive pupils present Psych Affect: normal affect Assessment and Plan Assessment & Plan (1) Diabetes: Code(s): E11.9 - Type 2 diabetes mellitus without complications Plan: A1c?now?7.2%.??Much?improved. ?Goal?is?less?than?7.0% She?has?had?a?couple?of?episodes?where?she?felt?like?she?was?having?low?blood?monroe gars.??She?has?decreased?her?evening?glipizide?dose?to?1?tablet ?and?I?encouraged?her?to?take?this?prior?to?her?dinnertime. She?can?decrease?further?as?needed Continue?Ozempic?as?prescribed?and?we?will?continue?to?bring?this?up?as?needed.? ?Likely?increasing?again ?at?her?next?visit?while?decreasing?or?discontinuing?glipizide. Continue?diabetic?diet (2) Hypertension: Code(s): I10 - Essential (primary) hypertension Plan: Blood?pressure?is?controlled.??Goal?is?less?than?140/90 Continue?current?medication?regimen (3) BMI 35.0-35.9,adult: Code(s): Z68.35 - Body mass index [BMI] 35.0-35.9, adult Plan: Patient?is?interested?in?liposuction. S he?will?discuss?with?surgeon?and?come?back?for?preoperative?clearance?when?she?i s?ready Medications: Changed From glipizide 20 mg (2 x 10 mg) PO BID 3 months 360 tabs 4RF E11.65 - Type 2 diabetes mellitus with hyperglycemia To glipizide 2 tabs in AM and 1 tab at dinner time orally 2 times a day; 3 months 270 tabs 4RF E11.65 - Type 2 diabetes mellitus with hyperglycemia Refilled glipizide 20 mg (2 x 10 mg) PO BID 3 months 360 tabs 4RF E11.65 - Type 2 diabetes mellitus with hyperglycemia Coding Level of Care Code Est Pt Level 4 (46756) Diagnoses Diabetes E11.9 Hypertension I10 BMI 35.0-35.9,adult Z68.35
[2024-07-16 09:59] VITALS: BP 120/60; PULSE 86; RESP 16; TEMP 36.6; O2SAT 96; BMI 37.8
== END 2024-07-16 10:32 | disposition home or self-care (01) ==
PROVIDERS: PCP Family Medicine; Visit Provider Family Medicine
DX: E11.9 Type 2 diabetes mellitus without complications (principal); I10 Essential (primary) hypertension; Z68.35 Body mass index [BMI] 35.0-35.9, adult
CPT/HCPCS: 99214

== ENCOUNTER 2024-10-18 08:33 | Outpatient (AMB) | payer OTHER, SELFPAY ==
--- NOTE | 2024-10-18 08:47 | A.OFFPC_ITS ---
Vital Signs 10/18/24 08:48 Height 4 ft 11 in Weight 186 lb 4 oz BMI 37.6 BP 130/76 Blood Pressure Location Rt brachial Position Sitting Respiration 14 Pulse 92 Pulse Source Pulse Oximeter Temp 98.2 F Temp Source Oral Pulse Oximetry (%) 99 Oxygen Delivery Method Room Air Intake Visit Reasons: f/u diabetes, htn Intake Note: f/u dm and htn Allergies No Known Allergies Allergy (Verified 10/18/24 08:47) Medication List - Last Reconciled 10/18/24 by Braden Scott MD atorvastatin 40 mg PO DAILY 90 days blood sugar diagnostic (FreeStyle Lite Strips) DX: E11.9. Test Blood Sugar Twice A Day. 90 day supply blood-glucose meter As directed cholecalciferol (vitamin D3) (Vitamin D3) 25 mcg PO DAILY flash glucose scanning reader ([employer] Vahid 2 Baudette) To monitor glucose, As directed, 999 days flash glucose sensor (FreeStyle Vahid 2 Sensor kit) To monitor blood sugar continuously for 14 days, As directed glipizide 2 tabs in AM and 1 tab at dinner time orally 2 times a day; 3 months lancets glucose checks 2 times daily and as needed for s/s of dm lisinopril 10 mg PO DAILY naproxen 500 mg PO BID nicotine (polacrilex) (Nicorette) 2 mg buccal Q8H PRN 28 days semaglutide 1 mg (0.75 mL) subcut QWEEK 28 days Tobacco use date assessed: 04/12/24 Dental Screening Dental Screen Date: 04/12/24 HPI f/u diabetes, htn HPI Details 49 y/o female presents to f/u diabees, h ypertension. Prior A1c 7.2% which was much improved. A1c today 10/18/24 is 7.5%. Blood pressure today is 130/76. She has been taking ozempic once a week, glipizide once a day. Notes shakiness/dizziness in the morning with glipizide but pt states she may not be eating enough at breakfast. PFSH Medical History Hyperlipidemia Hypertension Diabetes Arthritis of both knees Surgical History S/P trigger finger release History of cholecystectomy History of tubal ligation History of section Family History (Updated 04/12/24 @ 14:09 by Camila Rodríguez CMA) Father Medical history unknown Mother Hypertension Son Asthma Social History Housing: House Patient Tobacco Use Status: Current everyday Tobacco user Cigarettes Per Day: 7 e-Cigarette/Vaping Use: Never Used Second Hand Smoke Exposure: No service: No Current occupational status: employed Current occupation: handed/[employer] Cognitive needs: No Hearing needs: No Vision needs: No Questionnaire PHQ-9 Over the last 2 weeks, how often have you been bothered by any of the following problems? 1. Little interest or pleasure in doing things: not at all 2. Feeling down, depressed, or hopeless: not at all 3. Trouble falling or staying asleep, or sleeping too much: not at all 4. Feeling tired or having little energy: not at all 5. Poor appetite or overeating: not at all 6. Feeling bad about yourself - or that you are a failure or have let yourself or your family down: not at all 7. Trouble concentrating on things, such as reading the newspaper or watching television: not at all 8. Moving or speaking so slowly that other people could have noticed. Or the opposite - being so fidgety or restless that you have been moving around a lot more than usual: not at all 9. Thoughts that you would be better off or of hurting yourself in some way: not at all Total score: 0 Source: Developed by Drs. Scar Boone, Delfina Marquis, Gurinder Bradley and colleagues, with an educational niki from [employer]. Thrive Questionnaire Date Thrive assessed: 03/12/24 I am a: Patient What is your living situation today?: I have a steady place to live Within the past 12 months, did the food you bought not last and you didn't have the money to get more?: Never true Within the past 12 months, did you worry whether your food would run out before you got money to buy more?: Never true Do you have trouble paying for medicines?: No Do you have trouble getting transportation to medical appointments?: No Do you have trouble paying your heating and electricity bill?: No Do you have trouble taking care of your child, family member or friend?: No Do you have trouble with day-to-day activities such as bathing, preparing meals, shopping, managing finances, etc.?: No Are you currently unemployed and looking for a job?: No Are you interested in more education?: No Please select the resources that you would like help with: Paying for medicine Currently or been in a relationship where the following occur: No concerns reported THRIVE Score: 0 AUDIT C Alcohol Use Questionnaire (AUDIT-C) 1. How often do you have a drink containing alcohol?: 2-4 times a month 2. How many drinks containing alcohol do you have on a typical day when you are drinking?: 1 or 2 3. How often do you have six or more drinks on one occasion?: Never Total Score: 2 YARIEL-7 AMB Questionnaire YARIEL-7 Date YARIEL - 7 assessed: 03/12/24 Feeling nervous, anxious, or on edge: 1 = Several days Not being able to stop or control worryin = Not at all Worrying too much about different things: 1 = Several days Trouble relaxin = Several days Being so restless that it is hard to sit still: 0 = Not at all Becoming easily annoyed or irritable: 1 = Several days Feeling afraid as if something awful might happen: 0 = Not at all Total YARIEL-7 score (0-4 normal; 5-9 mild; 10-14 moderate; 15-21 severe): 4 Source: Developed by Drs. Sacr Boone, Delfina Marquis, Gurinder Bradley and colleagues, with an educational niki from [employer]. Review of Systems Const Denies chills, Denies fatigue, Denies fever(s), Denies headache(s) and Denies we akness ENT Denies dizziness and Denies headache(s) Card Denies dyspnea Resp Denies cough, Denies dyspnea, Denies wheezing and Denies other (shortness of breath) Musc Denies numbness and Denies tingling Neuro Denies dizziness, Denies headache(s), Denies numbness, Denies tingling and Denies weakness Psych Denies anxiety and Denies depression Endo Denies fatigue Aller/Immun Denies wheezing Physical exam (Primary Care) Vital Signs: Last Vital Signs Temp 98.2 F 10/18/24 08:48 Pulse 92 10/18/24 08:48 Resp 14 10/18/24 08:48 BP 130/76 10/18/24 08:48 Pulse Ox 99 10/18/24 08:48 Oxygen Delivery Method Room Air 10/18/24 08:48 BMI result Body Mass Index 37.6 Tobacco/Smoking Status: Tobacco use Status Tobacco use date assessed 04/12/24 10/18/24 08:51 Patient Tobacco Use Status Current everyday Tobacco 10/18/24 08:51 e-Cigarette/Vaping Use Never Used 10/18/24 08:51 PHQ-9: PHQ-9 Score PHQ-9: Total score 0 10/18/24 09:04 Thrive Assessment: Date of Thrive Assessment Date Thrive assessed 03/12/24 10/18/24 08:51 Currently or been in a relationship where the following occur: No concerns reported Const General: well developed; No acute distress Nutritional Appearance: well nourished Orientation/consciousness: patient oriented x3 HENMT Head: Yes normocephalic and Yes atraumatic Eyes General: appearance normal, both eyes and all related structures Pupils: Equal, round and reactive pupils present EOM: EOMs intact bilaterally Resp Effort & Inspection: normal respiratory effort Neuro General: patient oriented x3 and gait normal Cranial nerves: Yes Equal, round and reactive pupils present Psych Affect: normal affect Coding Level of Care Code Est Pt Level 4 (46907) Diagnoses Diabetes E11.9 Hypertension I10 Screening for tuberculosis Z11.1 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 Will?increase?Ozempic?to?2?mg?weekly?and?decrease?her?glipizide.??She?will?take? this?as?5?mg?once?day?with?meal. 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 These?are?anderson?angiomas Reassured?patient She?will?let?know?if?further?concerns Orders: Orders T Spot TB Today Z11.1 - Encounter for screening for respiratory tuberculosis Medications: Changed From glipizide 2 tabs in AM and 1 tab at dinner time orally 2 times a day; 3 months 270 tabs 4RF To glipizide 5 mg PO DAILY 90 tabs 4RF 90 days From semaglutide for 4 weeks 1 mg (0.75 mL) subcut QWEEK 28 days 3 mL 3RF To semaglutide for 4 weeks 2 mg (0.75 mL) subcut QWEEK 3 mL 3RF 28 days
[2024-10-18 08:48] VITALS: BP 130/76; PULSE 92; RESP 14; TEMP 36.8; O2SAT 99; BMI 37.6
== END 2024-10-18 09:20 | disposition home or self-care (01) ==
PROVIDERS: PCP Family Medicine; Visit Provider Family Medicine
DX: E11.9 Type 2 diabetes mellitus without complications (principal); I10 Essential (primary) hypertension; Z11.1 Encounter for screening for respiratory tuberculosis; D18.01 Hemangioma of skin and subcutaneous tissue

== ENCOUNTER 2024-10-18 09:16 | Outpatient (REF) | payer OTHER, SELFPAY ==
[2024-10-21 05:18] LABS: TS Negative Control Passed; TS Panel A 0; TS Panel B 0; TS Positive Control Passed; TSpotTB Negative (Negative)
== END 2024-10-18 09:17 | disposition home or self-care (01) ==
LOC: HO.WFDLDS 09:16
PROVIDERS: Visit Provider Family Medicine
DX: Z11.1 Encounter for screening for respiratory tuberculosis (principal); E11.9 Type 2 diabetes mellitus without complications; I10 Essential (primary) hypertension; D18.01 Hemangioma of skin and subcutaneous tissue; Z79.84 Long term (current) use of oral hypoglycemic drugs; Z79.899 Other long term (current) drug therapy
CPT/HCPCS: 36415; 83036; 86481; 99212

== ENCOUNTER 2024-12-06 15:28 | Outpatient (REF) | payer OTHER, SELFPAY | END 2024-12-06 15:29 | disposition home or self-care (01) | LOC: HO.MAMMO 15:28 | PROVIDERS: PCP Family Medicine; Visit Provider Nurse Practitioner Family | DX: Z12.31 Encounter for screening mammogram for malignant neoplasm of breast (principal) | CPT/HCPCS: 77063; 77067 ==

== ENCOUNTER → 2024-12-06 15:30 | Outpatient (BNV) | payer OTHER, SELFPAY | PROVIDERS: PCP Family Medicine; Visit Provider Internal Medicine | DX: Z12.31 Encounter for screening mammogram for malignant neoplasm of breast (principal) | CPT/HCPCS: 77063; 77067 ==

== ENCOUNTER 2025-01-22 08:30 | Outpatient (AMB) | payer OTHER, SELFPAY ==
--- NOTE | 2025-01-22 08:39 | A.OFFPC_ITS ---
Vital Signs 01/22/25 08:48 Height 4 ft 11 in Weight 179 lb BMI 36.1 BP 130/80 Blood Pressure Location Lt brachial Position Sitting Respiration 12 Pulse 87 Pulse Source Pulse Oximeter Temp 97.7 F Temp Source Oral Pulse Oximetry (%) 97 Oxygen Delivery Method Room Air Intake Visit Reasons: f/u diabetes, HTN Intake Note: DM/HTN follow up [facility] Required: No Allergies No Known Allergies Allergy (Verified 01/22/25 08:46) Medication List - Last Reconciled 01/22/25 by Braden Scott MD atorvastatin 40 mg PO DAILY 90 days blood sugar diagnostic (FreeStyle Lite Strips) DX: E11.9. Test Blood Sugar Twice A Day. 90 day supply blood-glucose meter As directed cholecalciferol (vitamin D3) (Vitamin D3) 25 mcg PO DAILY flash glucose scanning reader (Kenta BiotechStyle Vahid 2 [place]) To monitor glucose, As directed, 999 days flash glucose sensor (FreeStyle Vahid 2 Sensor kit) To monitor blood sugar continuously for 14 days, As directed glipizide 5 mg PO DAILY 90 days lancets glucose checks 2 times daily and as needed for s/s of dm lisinopril 10 mg PO DAILY semaglutide 2 mg (0.75 mL) subcut QWEEK 28 days Tobacco use date assessed: 04/12/24 Dental Screening Dental Screen Date: 04/12/24 HPI f/u diabetes, HTN HPI Details 49 y/o female presents to f/u diabetes, HTN. A1c today 01/22/25 6.9%. She is on glipizide 5mg daily. Blood pressure today 130/80, 87p. She is on lisinopril 10mg daily. Reports knee pain, R leg pain, low back pain. [facility] Medical History Hyperlipidemia Hypertension Diabetes Arthritis of both knees Surgical History S/P trigger finger release History of cholecystectomy History of tubal ligation History of section Family History (Updated 04/12/24 @ 14:09 by Camila Rodríguez CMA) Father Medical history unknown Mother Hypertension Son Asthma Social History Housing: House Patient Tobacco Use Status: Current everyday Tobacco user Cigarettes Per Day: 7 e-Cigarette/Vaping Use: Never Used Second Hand Smoke Exposure: No service: No Current occupational status: employed Current occupation: [employer] Cognitive needs: No Hearing needs: No Vision needs: No Questionnaire Thrive Questionnaire Date Thrive assessed: 01/16/25 I am a: Patient What is your living situation today?: I have a steady place to live Within the past 12 months, did the food you bought not last and you didn't have the money to get more?: I choose not to answer this question Within the past 12 months, did you worry whether your food would run out before you got money to buy more?: I choose not to answer this question Do you have trouble paying for medicines?: I choose not to answer this question Do you have trouble getting transportation to medical appointments?: I choose not to answer this question Do you have trouble paying your heating and electricity bill?: I choose not to answer this question Do you have trouble taking care of your child, family member or friend?: No Do you have trouble with day-to-day activities such as bathing, preparing meals, shopping, managing finances, etc.?: I choose not to answer this question Are you currently unemployed and looking for a job?: I choose not to answer this question Are you interested in more education?: Yes Currently or been in a relationship where the following occur: No concerns reported THRIVE Score: 0 AUDIT C Alcohol Use Questionnaire (AUDIT-C) 1. How often do you have a drink containing alcohol?: 2-4 times a month 2. How many drinks containing alcohol do you have on a typical day when you are drinking?: 1 or 2 3. How often do you have six or more drinks on one occasion?: Never Total Score: 2 YARIEL-7 AMB Questionnaire YARIEL-7 Date YARIEL - 7 assessed: 03/12/24 Feeling nervous, anxious, or on edge: 2 = More than half the days Not being able to stop or control worryin = More than half the days Worrying too much about different things: 2 = More than half the days Trouble relaxin = Several days Being so restless that it is hard to sit still: 0 = Not at all Becoming easily annoyed or irritable: 1 = Several days Feeling afraid as if something awful might happen: 1 = Several days Total YARIEL-7 score (0-4 normal; 5-9 mild; 10-14 moderate; 15-21 severe): 9 Source: Developed by Drs. Scar Boone, Delfina Marquis, Gurinder Bradley and colleagues, with an educational niki from [employer]. Review of Systems Const Denies chills, Denies fatigue, Denies fever(s), Denies headache(s) and Denies weakness ENT Denies dizziness and Denies headache(s) Card Denies dyspnea Resp Denies cough, Denies dyspnea, Denies wheezing and Denies other (shortness of breath) Musc Reports back pain, Denies numbness and Denies tingling Neuro Denies dizziness, Denies headache(s), Denies numbness, Denies tingling and D enies weakness Psych Denies anxiety and Denies depression Endo Denies fatigue Aller/Immun Denies wheezing Physical exam (Primary Care) Vital Signs: Last Vital Signs Temp 97.7 F 01/22/25 08:48 Pulse 87 01/22/25 08:48 Resp 12 01/22/25 08:48 BP 130/80 01/22/25 08:48 Pulse Ox 97 01/22/25 08:48 Oxygen Delivery Method Room Air 01/22/25 08:48 BMI result Body Mass Index 36.1 Tobacco/Smoking Status: Tobacco use Status Tobacco use date assessed 04/12/24 01/22/25 08:42 Patient Tobacco Use Status Current everyday Tobacco 01/22/25 08:42 e-Cigarette/Vaping Use Never Used 01/22/25 08:42 Thrive Assessment: Date of Thrive Assessment Date Thrive assessed 01/16/25 01/22/25 08:42 Currently or been in a relationship where the following occur: No concerns reported Const General: well developed; No acute distress Nutritional Appearance: well nourished Orientation/consciousness: patient oriented x3 HENMT Head: Yes normocephalic and Yes atraumatic Eyes General: appearance normal, both eyes and all related structures Pupils: Equal, round and reactive pupils present EOM: EOMs intact bilaterally Resp Effort & Inspection: normal respiratory effort Neuro General: patient oriented x3 and gait normal Cranial nerves: Yes Equal, round and reactive pupils present Psych Affect: normal affect Coding Level of Care Code Est Pt Level 4 (16598) Diagnoses Hypertension I10 Diabetes E11.9 Subconjunctival hematoma H11.30 Knee pain M25.569 Right leg pain M79.604 Assessment & Plan Assessment & Plan (1) Hypertension: Code(s): I10 - Essential (primary) hypertension Category: Medical Plan: Blood?pressure?is?controlled.??Goal?is?less?than?140/90 Continue?current?medication (2) Diabetes: Code(s): E11.9 - Type 2 diabetes mellitus without complications Category: Medical Plan: A1c?improved?to?6.9% She?has?not?been?taking?the?glipizide?5?mg?daily, consistently Will?decrease?this?to?2.5?mg?daily. Work?at?consistency Continue?with?Ozempic (3) Subconjunctival hematoma: Code(s): H11.30 - Conjunctival hemorrhage, unspecified eye Category: Medical Plan: Resolving (4) Knee pain: Code(s): M25.569 - Pain in unspecified knee Category: Medical Plan: Referred?back?to?her?orthopedic?surgeon (5) Right leg pain: Code(s): M79.604 - Pain in right leg Category: Medical Plan: Referred?to?her?chiropractor?for?low?back?pain?and?right?leg?pain. Orders: Referrals Orthopedics Referral M17.0 - Bilateral primary osteoarthritis of knee Chiropractic Referral M54.50 - Low back pain, unspecified, M79.604 - Pain in right leg Medications: Changed From glipizide 5 mg PO DAILY 90 days 90 tabs 4RF To glipizide 2.5 mg PO DAILY 90 tabs 4RF 90 days Refilled semaglutide for 4 weeks 2 mg (0.75 mL) subcut QWEEK 3 mL 3RF 28 days
[2025-01-22 08:48] VITALS: BP 130/80; PULSE 87; RESP 12; TEMP 36.5; O2SAT 97; BMI 36.1
== END 2025-01-22 09:08 | disposition home or self-care (01) ==
PROVIDERS: PCP Family Medicine; Visit Provider Family Medicine
DX: E11.9 Type 2 diabetes mellitus without complications (principal)

== ENCOUNTER → 2025-01-22 08:30 | Outpatient (BNVA) | payer SELFPAY | PROVIDERS: PCP Family Medicine; Visit Provider Family Medicine | DX: I10 Essential (primary) hypertension (principal); E11.9 Type 2 diabetes mellitus without complications; H11.30 Conjunctival hemorrhage, unspecified eye; M25.569 Pain in unspecified knee; M79.604 Pain in right leg; M54.50 Low back pain, unspecified; Z79.84 Long term (current) use of oral hypoglycemic drugs; Z79.899 Other long term (current) drug therapy | CPT/HCPCS: 83036 ==

== ENCOUNTER 2025-04-23 08:45 | Outpatient (AMB) | payer OTHER, SELFPAY ==
--- NOTE | 2025-04-23 09:24 | A.OFFPC_ITS ---
Vital Signs 04/23/25 09:25 04/23/25 09:28 Height 4 ft 11 in Weight 171 lb 6 oz BMI 34.6 BP 140/70 H 128/70 Blood Pressure Location Rt brachial Rt brachial Position Sitting Sitting Respiration 14 Pulse 92 Pulse Source Pulse Oximeter Temp 98.2 F Temp Source Oral Pulse Oximetry (%) 99 Oxygen Delivery Method Room Air Intake Visit Reasons: f/u DM, HTN Intake Note: patient is schedule for dm and htn follow up [employer] Required: No Allergies No Known Allergies Allergy (Verified 04/23/25 09:29) Tobacco use date assessed: 04/12/24 Dental Screening Dental Screen Date: 04/12/24 HPI f/u DM, HTN HPI Details 49 y/o female presents to f/u diabetes, hypertension. Prior A1c 01/22/25 6.9%. She is on glipizide 5mg daily. A1c today 04/23/25 is 7.7%. Blood pressure today 128/70, 92p. She is on lisinopril 10mg daily. HPI Comments History of Present Illness Details Documentation assistance for Braden Scott MD, was provided by Wei Graham,? Overhauler Helper on 04/23/2025 at 9:32 AM EST. I, Dr. Scott, have read, observed, and verified documentation. ?? PFSH Medical History Hyperlipidemia Hypertension Diabetes Arthritis of both knees Surgical History S/P trigger finger release History of cholecystectomy History of tubal ligation History of section Family History (Updated 04/12/24 @ 14:09 by Camila Rodríguez CMA) Father Medical history unknown Mother Hypertension Son Asthma Social History Housing: House Patient Tobacco Use Status: Current everyday Tobacco user Cigarettes Per Day: 7 e-Cigarette/Vaping Use: Never Used Second Hand Smoke Exposure: No service: No Current occupational status: employed Current occupation: [employer] Cognitive needs: No Hearing needs: No Vision needs: No Questionnaire PHQ-9 Over the last 2 weeks, how often have you been bothered by any of the following problems? 1. Little interest or pleasure in doing things: not at all 2. Feeling down, depressed, or hopeless: not at all 3. Trouble falling or staying asleep, or sleeping too much: more than half the days 4. Feeling tired or having little energy: several days 5. Poor appetite or overeating: several days 6. Feeling bad about yourself - or that you are a failure or have let yourself or your family down: not at all 7. Trouble concentrating on things, such as reading the newspaper or watching television: several days 8. Moving or speaking so slowly that other people could have noticed. Or the opposite - being so fidgety or restless that you have been moving around a lot more than usual: not at all 9. Thoughts that you would be better off or of hurting yourself in some way: not at all Total score: 5 Source: Developed by Drs. Scar Boone, Delfina Marquis, Gurinder Bradley and colleagues, with an educational niki from [employer]. Thrive Questionnaire Date Thrive assessed: 01/16/25 I am a: Patient What is your living situation today?: I have a steady place to live Within the past 12 months, did the food you bought not last and you didn't have the money to get more?: I choose not to answer this question Within the past 12 months, did you worry whether your food would run out before you got money to buy more?: I choose not to answer this question Do you have trouble paying for medicines?: I choose not to answer this question Do you have trouble getting transportation to medical appointments?: I choose not to answer this question Do you have trouble paying your heating and electricity bill?: I choose not to answer this question Do you have trouble taking care of your child, family member or friend?: No Do you have trouble with day-to-day activities such as bathing, preparing meals, shopping, managing finances, etc.?: I choose not to answer this question Are you currently unemployed and looking for a job?: I choose not to answer this question Are you interested in more education?: Yes Currently or been in a relationship where the following occur: No concerns reported THRIVE Score: 0 YARIEL-7 AMB Questionnaire YARIEL-7 Date YARIEL - 7 assessed: 03/12/24 Source: Developed by Drs. Scar Boone, Delfina Marquis, Gurinder Bradley and colleagues, with an educational niki from [employer]. Review of Systems Const Denies chills, Denies fatigue, Denies fever(s), Denies headache(s) and Denies weakness ENT Denies dizziness and Denies headache(s) Card Denies dyspnea Resp Denies cough, Denies dyspnea, Denies wheezing and Denies other (shortness of breath) Musc Denies numbness and Denies tingling Neuro Denies dizziness, Denies headache(s), Denies numbness, Denies tingling and Denies weakness Psych Denies anxiety and Denies depression Endo Denies fatigue Aller/Immun Denies wheezing Physical exam (Primary Care) Vital Signs: Last Vital Signs Temp 98.2 F 04/23/25 09:25 Pulse 92 04/23/25 09:25 Resp 14 04/23/25 09:25 BP 128/70 04/23/25 09:28 Pulse Ox 99 04/23/25 09:25 Oxygen Delivery Method Room Air 04/23/25 09:25 BMI result Body Mass Index 34.6 Tobacco/Smoking Status: Tobacco use Status Tobacco use date assessed 04/12/24 04/23/25 09:26 Patient Tobacco Use Status Current everyday Tobacco 04/23/25 09:26 e-Cigarette/Vaping Use Never Used 04/23/25 09:26 PHQ-9: PHQ-9 Score PHQ-9: Total score 5 04/23/25 09:26 Thrive Assessment: Date of Thrive Assessment Date Thrive assessed 01/16/25 04/23/25 09:26 Currently or been in a relationship where the following occur: No concerns reported Const General: well developed; No acute distress Nutritional Appearance: well nourished Orientation/consciousness: patient oriented x3 HENMT Head: Yes normocephalic and Yes atraumatic Eyes General: appearance normal, both eyes and all related structures Pupils: Equal, round and reactive pupils present EOM: EOMs intact bilaterally Resp Effort & Inspection: normal respiratory effort Auscultation: clear to auscultation bilaterally Cardio Rate: regular rate Rhythm: regular rhythm Heart sounds: S1 normal heart sound present, S2 normal heart sound present, no gallops, no murmurs and no rubs Neuro General: patient oriented x3 and gait normal Cranial nerves: Yes Equal, round and reactive pupils present Psych Affect: normal affect Coding Level of Care Code Est Pt Level 3 (47063) Diagnoses Diabetes E11.9 Hypertension I10 Assessment & Plan Assessment & Plan (1) Diabetes: Code(s): E11.9 - Type 2 diabetes mellitus without complications Category: Medical Plan: A1c today: 7.7%.??Poor?control.??Goal?is?less?than?7% She?notes?that?she?had?a?period?of?time?when?she?was?out Of?her?Ozempic. Refilled?Ozempic Will?change?glipizide?from?2.5?mg?fast?acting?tablet?2 Glipizide?ER?5?mg?once?daily?in?the?morning. Call?or?return?to?office?if?any?problems Otherwise?will?follow-up?in?3?months (2) Hypertension: Code(s): I10 - Essential (primary) hypertension Category: Medical Plan: Blood?pressure?improves?with?relaxation.??Goal?is?less?than?140/90 Good control. Continue current medication Medications: New glipizide ER 5 mg PO QAM 90 days 90 tabs 3RF Refilled semaglutide for 4 weeks 2 mg (0.75 mL) subcut QWEEK 28 days 3 mL 0RF Discontinued glipizide Discontinued Reason: Doctor's Order 2.5 mg PO DAILY 90 days 90 tabs 4RF
[2025-04-23 09:25] VITALS: BP 140/70; PULSE 92; RESP 14; TEMP 36.8; O2SAT 99; BMI 34.6
[2025-04-23 09:28] VITALS: BP 128/70
== END 2025-04-23 09:43 | disposition home or self-care (01) ==
LOC: HO.HMCFM 08:45
PROVIDERS: PCP Family Medicine; Visit Provider Family Medicine
DX: E11.9 Type 2 diabetes mellitus without complications (principal); I10 Essential (primary) hypertension

== ENCOUNTER → 2025-04-23 08:45 | Outpatient (BNVA) | payer OTHER, SELFPAY | PROVIDERS: PCP Family Medicine; Visit Provider Family Medicine | DX: I10 Essential (primary) hypertension (principal); E11.9 Type 2 diabetes mellitus without complications | CPT/HCPCS: 83036; 96127 ==

== ENCOUNTER 2025-08-01 08:54 | Outpatient (AMB) | payer OTHER, SELFPAY ==
--- NOTE | 2025-08-01 09:00 | MHC.PC.OV ---
Vital Signs 08/01/25 09:05 Height 4 ft 11 in Weight 176 lb 4 oz BMI 35.6 BP 129/71 Blood Pressure Location Lt brachial Position Sitting Respiration 16 Pulse 86 Pulse Source Pulse Oximeter Temp 98.1 F Temp Source Oral Pulse Oximetry (%) 99 Oxygen Delivery Method Room Air Intake Visit Reasons: f/u diabetes Intake Note: patient here for follow up on DM [employer] Required: No Is last menstrual period known: No Post menopausal: No Patient : No Allergies No Known Allergies Allergy (Verified 08/01/25 09:03) Medication List - Last Reconciled 08/01/25 by Braden Scott MD atorvastatin 40 mg PO DAILY 90 days blood sugar diagnostic (FreeStyle Lite Strips) DX: E11.9. Test Blood Sugar Twice A Day. 90 day supply blood-glucose meter As directed cholecalciferol (vitamin D3) (Vitamin D3) 25 mcg PO DAILY flash glucose scanning reader ([employer]Style Vahid 2 [place]) To monitor glucose, As directed, 999 days flash glucose sensor (FreeStyle Vahid 2 Sensor kit) To monitor blood sugar continuously for 14 days, As directed glipizide ER 5 mg PO QAM 90 days lancets glucose checks 2 times daily and as needed for s/s of dm lisinopril 10 mg PO DAILY semaglutide 2 mg (0.75 mL) subcut QWEEK 28 days Tobacco use date assessed: 08/01/25 Dental Screening Dental Screen Date: 08/01/25 Did you have a dental visit in the last 12 months?: No Did you have a dental problem in the last 6 months where you did not have access to dental care?: No Was dental information given to patient?: No HPI f/u diabetes HPI Details 49 y/o female presents to f/u diabetes. A1c today 08/01/25 6.3%. She is on glipizide, semaglutide 2mg. She has been taking glipizide in the morning. [facility] Medical History Hyperlipidemia Hypertension Diabetes Arthritis of both knees Surgical History S/P trigger finger release History of cholecystectomy History of tubal ligation History of section Family History (Updated 04/12/24 @ 14:09 by Camila Rodríguez CMA) Father Medical history unknown Mother Hypertension Son Asthma Social History Housing: House Patient Tobacco Use Status: Current everyday Tobacco user Cigarettes Per Day: 7 e-Cigarette/Vaping Use: Never Used Second Hand Smoke Exposure: No Patient : No service: No Current occupational status: employed Current occupation: [employer] Cognitive needs: No Hearing needs: No Vision needs: No Questionnaire Thrive Questionnaire Date Thrive assessed: 01/16/25 YARIEL-7 AMB Questionnaire YARIEL-7 Date YARIEL - 7 assessed: 03/12/24 Source: Developed by Drs. Scar Boone, Delfian Marquis, Gurinder Bradley and colleagues, with an educational niki from [employer]. Review of Systems Const Denies chills, Denies fatigue, Denies fever(s), Denies headache(s) and Denies weakness ENT Denies dizziness and Denies headache(s) Card Denies dyspnea Resp Denies cough, Denies dyspnea, Denies wheezing and Denies other (shortness of breath) Musc Denies numbness and Denies tingling Neuro Denies dizziness, Denies headache(s), Denies numbness, Denies tingling and Denies weakness Psych Denies anxiety and Denies depression Endo Denies fatigue Aller/Immun Denies wheezing Physical exam (Primary Care) Vital Signs: Last Vital Signs Temp 98.1 F 08/01/25 09:05 Pulse 86 08/01/25 09:05 Resp 16 08/01/25 09:05 BP 129/71 08/01/25 09:05 Pulse Ox 99 08/01/25 09:05 Oxygen Delivery Method Room Air 08/01/25 09:05 BMI result Body Mass Index 35.6 Tobacco/Smoking Status: Tobacco use Status Tobacco use date assessed 08/01/25 08/01/25 09:10 Patient Tobacco Use Status Current everyday Tobacco 08/01/25 09:00 e-Cigarette/Vaping Use Never Used 08/01/25 09:00 Thrive Assessment: Date of Thrive Assessment Date Thrive assessed 01/16/25 08/01/25 09:00 Const General: well developed; No acute distress Nutritional Appearance: well nourished Orientation/consciousness: patient oriented x3 HENMT Head: Yes normocephalic and Yes atraumatic Eyes General: appearance normal, both eyes and all related structures Pupils: Equal, round and reactive pupils present EOM: EOMs intact bilaterally Resp Effort & Inspection: normal respiratory effort Neuro General: patient oriented x3 and gait normal Cranial nerves: Yes Equal, round and reactive pupils present Psych Affect: normal affect Coding Level of Care Code Est Pt Level 4 (00929) Diagnoses Hypertension I10 Diabetes E11.9 Osteoarthritis of knee M17.9 Morbid obesity due to excess calories E66.01 Assessment & Plan Assessment & Plan (1) Hypertension: Code(s): I10 - Essential (primary) hypertension Category: Medical Plan: Blood pressure is controlled. Goal is less than 140/90 Continue current medication (2) Diabetes: Code(s): E11.9 - Type 2 diabetes mellitus without complications Category: Medical Plan: A1c is controlled. Goal is less than 7.0% She has been on semaglutide and her insurance change. They are declining semaglutide. Will send a script for Zepbound (3) Osteoarthritis of knee: Code(s): M17.9 - Osteoarthritis of knee, unspecified Category: Medical Plan: Bilateral osteoarthritis of the knees. Working on helping her lose weight. Also she is followed by Ortho and they are planning a knee replacement surgery She can follow-up with me after that (4) Morbid obesity due to excess calories: Code(s): E66.01 - Morbid (severe) obesity due to excess calories Category: Medical Plan: As above, working on helping patient lose weight. She has been on semaglutide for diabetes and weight loss We had when from 187 down to 176. Switching to Zepbound Will continue follow Medications: New tirzepatide (weight loss) (Zepbound) 7.5 mg (0.5 mL) subcut QWEEK 2 mL 3RF 28 days Discontinued semaglutide for 4 weeks Discontinued Reason: Insurance Denied 2 mg (0.75 mL) subcut QWEEK 28 days 3 mL 0RF
[2025-08-01 09:05] VITALS: BP 129/71; PULSE 86; RESP 16; TEMP 36.7; O2SAT 99; BMI 35.6
--- OUTSIDE RECORDS SUMMARY | 2025-08-01 09:23 | XMS_ITS | Clinical Summary ---
Author Organization [employer] [facility] it Address [address] [place] [address] Care Team Providers Care Superintendent Horticulture Name Role Phone Christiana Benitez NP Primary Care Provider Surgical History Surgery Date Site/Laterality Comments HAND SURGERY 2013 Right PROCEDURE: HISTORICAL HAND SURGERY; COMMENT: trigger thumb release TUBAL LIGATION PROCEDURE: HISTORICAL TUBAL LIGATION SECTION PROCEDURE: HISTORICAL DELIVERY Medical History Medical History Date Comments DJD (degenerative joint dise ase) of knee 02/15/2019 DX:DJD (degenerative joint d isease) of knee; COMMENT: Bilateral; NEOS 03/2018 Euflexxa injections Morbid obesity with BMI of 4 0.0-44.9, adult ([facility] V24, [facility] V28) 02/15/2019 DX:Morbid obesity wit h BMI of 40.0-44.9, adult ([facility]) Type 2 diabetes mellitus wit hout complication ([facility] V24, [facility] V28) 02/15/2019 DX:Type 2 diabetes mellitus without complication ([facility]) DJD (degenerative joint dise ase) of knee DX:DJD (degenerative joint d isease) of knee Family History Medical History Relation Name Comments Diabetes Maternal Grandfather Hypertension Mother Cervical cancer Neg Hx Colon cancer Neg Hx Prostate cancer Neg Hx Uterine cancer Neg Hx Relation Name Status Comments Maternal Grandfather Mother Alive Social History Tobacco Use Types Packs/Day Years Used Date Smoking Tobacco: Former Cigarettes Q uit: 11/28/2013 Smokeless Tobacco: Never Alcohol Use Standard Drinks/Week Comments Yes 0 (1 standard drink = 0.6 oz pur e alcohol) Comments Unknown Sex and Gender Information Value Date Recorded Sex Assigned at Not on file Legal Sex Female 4:55 AM EST Gender Identity Not on file Sexual Orientation Not on file Obstetrics History Last Filed Vital Signs Vital Sign Reading Time Taken Comments Blood Pressure 130/80 07/23/2024 1:25 PM EDT Pulse 92 07/23/2024 1:25 PM EDT Temperature - - Respiratory Rate - - Oxygen Saturation - - Inhaled Oxygen Concentration - - Weight 83.5 kg (184 lb) 07/23/2024 1:25 PM EDT Height 149.9 cm (4' 11 ) 01/30/2024 2:52 PM EST Body Mass Index 37.16 01/30/2024 2:52 PM EST Plan of Treatment Upcoming Encounters Date Type Department Care Team (Late st Contact Info) Description 12/23/2025 10:00 AM EST Office Visit Obstetrics & Gynecology - [address] [address] Wendy Martínez, [address] [place] [address] Health Maintenance Due Date Last Done Comments Breast Cancer Screening 1973 Diabetes: Annual GFR (Glomerular Filtration Rate) 1973 Diabetes: Annual Foot Exam 1983 Diabetes: Annual Retina Eye Exam 1983 DTaP,Tdap,and Td Vaccines (1 - Tdap) 1992 Hepatitis B Vaccines (1 of 3 - 19+ 3-dose series) 1992 Cholesterol Screening (Lipid Panel) 11/02/2022 Colorectal Cancer Screening: Colonoscopy 11/02/2022 HIV Screening 11/02/2022 Hepatitis C Screening 11/02/2022 Social Influencers of Health Screening 11/02/2022 Diabetes: Annual Urine Albumin-Creatinine Ratio (uACR) 11/12/2022 Diabetes: Blood Sugar Contro l Test (HGBA1C) 11/12/2022 Pneumococcal Vaccine: 50+ Years (1 of 1 - PCV) 2023 Zoster Vaccines (1 of 2) 2023 Depression Screening 11/28/2024 COVID-19 Vaccine (1 - 2023-2 5 season) 2025 Influenza Vaccine (#1) 2025 Cervical Cancer Screening: P ap Smear 07/23/2027 07/23/2024, 01/30/2024, 05/01/2019 HIB Vaccines Aged Out No longer eligi ble based on patient's age to complete this topic HPV Vaccines Aged Out No longer eligi ble based on patient's age to complete this topic Hepatitis A Vaccines Aged Out No long er eligible based on patient's age to complete this topic IPV Vaccines Aged Out No longer eligi ble based on patient's age to complete this topic MMR Vaccines Aged Out No longer eligi ble based on patient's age to complete this topic Meningococcal ACWY Vaccine Aged Out N o longer eligible based on patient's age to complete this topic Meningococcal B Vaccine Aged Out No l onger eligible based on patient's age to complete this topic RSV Immunization Patients Under 20 months Aged Out No longer eligible b ased on patient's age to complete this topic Varicella Vaccines Aged Out No longer eligible based on patient's age to complete this topic Procedures Procedure Name Priority Date/Time Associated Diagnosis Comments PAP SMEAR Routine 07/23/2024 from Last 3 Months or Most Recently Relevant to Health Maintenance Results * Pap smear (07/23/2024) 07/23/2024 Narrative HISTORICAL TESTING LAB RESULTING AGENCY - 07/25/2024 4:00 PM EDT [id number] THINPREP PAP, IMAGED: NEGATIVE FOR SQUAMOUS INTRAEPITHELIAL LESION AND MALIGNANCY TANO SHOEMAKER(ASCP) (CASE ELECTRONICALLY SIGNED 07 25 2024) ADEQUACY: SATISFACTORY ENDOCERVICAL/TRANSFORMATION ZONE COMPONENT ABSENT. SOURCE: THINPREP PAP, CERVICAL, IMAGED CLINICAL INFORMATION: MENOPAUSE, PAP HX NEGATIVE, [Z12.4] [facility] LAB CYTOLOGY ORDERABLES Final R esult HISTORICAL TESTING LAB RESULTING AGENCY from Last 3 Months or Most Recently Relevant to Health Maintenance Insurance [facility] Care Teams Superintendent Horticulture Relationship Specialty Start Date End Date Christiana Benitez NP [address] [place] [address] [address] [place] [address] PCP - General 07/21/22
== END 2025-08-01 09:41 | disposition home or self-care (01) ==
LOC: HO.HMCFM 08:54
PROVIDERS: PCP Family Medicine; Visit Provider Family Medicine
DX: E11.65 Type 2 diabetes mellitus with hyperglycemia (principal); E66.01 Morbid (severe) obesity due to excess calories; Z68.35 Body mass index [BMI] 35.0-35.9, adult; I10 Essential (primary) hypertension; M17.9 Osteoarthritis of knee, unspecified

== ENCOUNTER → 2025-08-01 08:54 | Outpatient (BNVA) | payer OTHER, SELFPAY | PROVIDERS: PCP Family Medicine; Visit Provider Family Medicine | DX: E11.9 Type 2 diabetes mellitus without complications (principal); I10 Essential (primary) hypertension; M17.9 Osteoarthritis of knee, unspecified; E66.01 Morbid (severe) obesity due to excess calories; Z68.35 Body mass index [BMI] 35.0-35.9, adult | CPT/HCPCS: 83036; 99212 ==

== ENCOUNTER 2025-09-24 15:55 | Outpatient (AMB) | payer OTHER, SELFPAY ==
[2025-09-24 16:08] VITALS: BP 110/80; PULSE 99; TEMP 36.4; O2SAT 100; BMI 35.5
--- NOTE | 2025-09-24 16:08 | AM.OFFWIN_ITS ---
Intake Vital Signs 09/24/25 16:08 Height 4 ft 11 in Weight 176 lb BMI 35.5 BP 110/80 Blood Pressure Location Lt brachial Position Sitting Pulse 99 Pulse Source Pulse Oximeter Temp 97.6 F Temp Source Oral Pulse Oximetry (%) 100 Oxygen Delivery Method Room Air Intake Visit Reasons: EP-uti & lt hand index finger infection Intake Note: pt presents with pressure/pain with voiding, vaginal discharge, itchiness for a few wks s/p RTKR 08/23/25. Also c/o LT index finger swelling and discomfort when hitting it. Patient Tobacco Use Status: Current everyday Tobacco user Allergies No Known Allergies Allergy (Verified 09/24/25 16:18) Do you need a note to return to daycare/school/sports/work: No HPI HPI Comments History of Present Illness Details History - The patient is a 50-year-old female pr esenting with a urinary tract infection. - The urinary tract infection symptoms b horacio a few days after her knee replacement surgery on August 23, with burning sensation during urination starting around August 27. denies fevers or back pain - The patient experienced a discharge re sembling cottage cheese, which she associated with a yeast infection. - The discharge and burning sensation se emed to improve but did not resolve completely, and the patient also experienced persistent itchiness. - The patient used vaginal cream, which did not alleviate the symptoms, and was advised to use fluconazole after completing antibiotics for the urinary tract infection. - The patient also reported a finger inf ection, characterized by tenderness and pain upon impact, pulled some skin off and only painful when it hits something, is red but not warm. Review of Systems - Genitourinary: Reports burning sensati on during urination and cottage cheese- like discharge. Denies current itchiness and discharge. - Musculoskeletal: Reports tenderness an d pain in the finger upon impact. All systems reviewed and are unremarkable except as noted in HPI Physical Exam General: Cooperative, healthy appearing, comfortable, no acute distress and well developed Orientation: Patient oriented x3 Limitations: No limitations Head: Normal to inspection Ears: Hearing grossly normal bilaterally Face and sinus: Normal facial exam Neck: Normal visual inspection and Yes full ROM Respiratory: Normal respiratory effort and able to speak in complete sentences. Skin: Tender left 2nd digit around nail with slight edema, no warmth or discharge noted, no drainage, no fluctuance Neuro: Patient oriented x3, gait is normal while ambulating with cane [facility] Medical History Hyperlipidemia Hypertension Diabetes Arthritis of both knees Surgical History S/P trigger finger release History of cholecystectomy History of tubal ligation History of section Family History (Updated 04/12/24 @ 14:09 by Camila Rodríguez CMA) Father Medical history unknown Mother Hypertension Son Asthma Social History Housing: House Patient Tobacco Use Status: Current everyday Tobacco user Cigarettes Per Day: 7 e-Cigarette/Vaping Use: Never Used Second Hand Smoke Exposure: No service: No Current occupational status: employed 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 Cognitive needs: No Hearing needs: No Vision needs: No Physical Exam Vital Signs: BMI result Body Mass Index 35.5 Results AMB Urinalysis, Automated UA Leukoctes 0 Hardeep/uL Last Edit by Gaye Schaffer MA on 09/24/25 16:28 UA Nitrite Negative Last Edit by Gaye Schaffer MA on 09/24/25 16:28 UA Urobilinogen 0.2 mg/dL Last Edit by Gaye Schaffer MA on 09/24/25 16:28 UA Protein 0 mg/dL Last Edit by Gaye Schaffer MA on 09/24/25 16:28 UA pH 6.0 Last Edit by Gaye Schaffer MA on 09/24/25 16:28 UA Blood 200 Wil/uL Last Edit by Gaye Schaffer MA on 09/24/25 16:28 3+ Gaye Schaffer 09/24/25 16:28 UA Specific [place] 1.025 Last Edit by Gaye Schaffer MA on 09/24/25 16:2 8 UA Ketone Negative Last Edit by Gaye Schaffer MA on 09/24/25 16:28 UA Bilirubin 0 mg/dL Last Edit by Gaye Schaffer MA on 09/24/25 16:28 UA Glucose 1000 mg/dL Last Edit by Gaye Schaffer MA on 09/24/25 16:28 3+ Gaye Schaffer 09/24/25 16:28 Assessment & Plan Assessment & Plan (1) UTI (urinary tract infection): Code(s): N39.0 - Urinary tract infection, site not specified Qualifiers: Urinary tract infection type: acute cystitis Hematuria presence: with hematuria Qualified Code(s): N30.01 - Acute cystitis with hematuria Plan: Plan - UA with blood, no infection but will treat based on symptoms. - Prescribe Cefuroxime for the urinary tract infection, to be taken for five days. - Advise the intake of pantoprazole and Cefuroxime to avoid interactions. - Return if no improvement - Sent culture Patient was informed and verbally consented to the use of an ambient scribe for clinic note documentation during this visit. (2) Cellulitis of finger of left hand: Code(s): L03.012 - Cellulitis of left finger Plan: - Recommend warm soaks with Epsom salts for the finger infection, with the expectation that the Cefuroxime will also address this infection. (3) Yeast infection of the vagina: Code(s): B37.31 - Acute candidiasis of vulva and vagina Plan: - Advise the patient to take fluconazole for the yeast infection after completing the antibiotic course, with a second dose if symptoms persist. - Instruct the patient to avoid taking Oxycodone on the day of fluconazole administration due to potential interactions. Orders: Orders Urine Culture Today N39.0 - Urinary tract infection, site not specified AMB Urinalysis Automated Today Z13.9 - Encounter for screening, unspecified Medications: New cefuroxime axetil Do not take while taking pantoprazole 500 mg PO Q12H 10 tabs 0RF fluconazole may repeat second dose 72 hrs after first dose if symptoms persist. Do not take the same day you take oxycodone 150 mg PO Q3D 2 tabs 0RF Coding Level of Care Code Est Pt Level 4 (72207) Diagnoses Acute cystitis with hematuria N30.01 Urinary tract infection type: acute cystitis Hematuria presence: with hematuria Cellulitis of finger of left hand L03.012 Yeast infection of the vagina B37.31
--- OUTSIDE RECORDS SUMMARY | 2025-09-24 20:04 | XMS_ITS | Clinical Summary ---
Author Organization [employer] [facility] it Address [address] [place] [address] Care Team Providers Care Physician Intensivist Name Role Phone Christiana Benitez NP Primary Care Provider [phone] Surgical History Surgery Date Site/Laterality Comments HAND SURGERY 2013 Right PROCEDURE: HISTORICAL HAND SURGERY; COMMENT: trigger thumb release TUBAL LIGATION PROCEDURE: HISTORICAL TUBAL LIGATION SECTION PROCEDURE: HISTORICAL DELIVERY Medical History Medical History Date Comments DJD (degenerative joint dise ase) of knee 02/15/2019 DX:DJD (degenerative joint d isease) of knee; COMMENT: Bilateral; NEOS 03/2018 Euflexxa injections Morbid obesity with BMI of 4 0.0-44.9, adult (CMS/HCC V24, [facility]/HCC V28) 02/15/2019 DX:Morbid obesity wit h BMI of 40.0-44.9, adult ([facility]) Type 2 diabetes mellitus wit hout complication 02/15/2019 DX:Type 2 diabetes mellitus without complication ([facility]) DJD (degenerative joint dise ase) of knee [...] EST Office Visit Obstetrics & Gynecology - [facility] [address] [place] [address] Wendy Martínez, [facility] [address] [place] [address] Health Maintenance Due Date Last Done Comments Breast Cancer Screening 1973 Colorectal Cancer Screening: Colonoscopy 1973 Diabetes: Annual GFR (Glomerular Filtration Rate) 1973 Diabetes: Annual Foot Exam 1983 Diabetes: Annual Retina Eye Exam 1983 DTaP,Tdap,and Td Vaccines (1 - Tdap) 1992 Hepatitis B Vaccines (1 of 3 - 19+ 3-dose series) 1992 Cholesterol Screening (Lipid Panel) 11/02/2022 HIV Screening 11/02/2022 Hepatitis C Screening [...] P ap Smear 07/23/2027 07/23/2024, 01/30/2024, 05/01/2019 RSV Immunization Adult Patients (1 - 1-dose 75+ series) 2048 HIB Vaccines Aged Out No longer eligi [...] RESULTING AGENCY - 07/25/2024 4:00 PM EDT [id number] THINPREP PAP, IMAGED: NEGATIVE FOR SQUAMOUS INTRAEPITHELIAL LESION AND MALIGNANCY TANO SHOEMAKER(ASCP) (CASE ELECTRONICALLY SIGNED 07 25 2024) ADEQUACY: SATISFACTORY ENDOCERVICAL/TRANSFORMATION ZONE COMPONENT ABSENT. SOURCE: THINPREP PAP, CERVICAL, IMAGED CLINICAL INFORMATION: MENOPAUSE, PAP HX NEGATIVE, [Z12.4] Chayo Munoz [facility] LAB CYTOLOGY ORDERABLES Final R esult HISTORICAL TESTING LAB RESULTING AGENCY from Last 3 Months or Most Recently Relevant to Health Maintenance Insurance [employer] Care Teams Physician Intensivist Relationship Specialty Start Date End Date Christiana Benitez NP [address] [facility] [address] [place] [address] PCP - General 07/21/22
== END 2025-09-24 16:55 | disposition home or self-care (01) ==
PROVIDERS: PCP Family Medicine; Visit Provider Physician Assistant
DX: N30.01 Acute cystitis with hematuria (principal); L03.012 Cellulitis of left finger; B37.31 Acute candidiasis of vulva and vagina; Z13.9 Encounter for screening, unspecified

== ENCOUNTER 2025-09-24 15:55 | Outpatient (REF) | payer OTHER, SELFPAY ==
--- OUTSIDE RECORDS SUMMARY | 2025-09-22 23:59 | XMS_ITS | Continuity of Care Document ---
Author Organization [facility] ter Address [address] [place] [address]- Care Team Providers Care Consumer Advocate Name Role Phone Braden Scott MD Primary Care Physician Encounter [facility] ACCT R [id number] Date(s): 08/23/25 - 09/22/[address] [address]- Attending Physician: Not on Staff, Attending MD Admitting Physician: Not on Staff, Admitting MD Referring Physician: Not on Staff, Referring MD Encounter Type: Pre-Outpt Allergies, Adverse Reactions, Alerts No Known Allergies Medications acetaminophen 325 mg oral tablet 650 mg, By Mouth, Every 6 hours, may take otc not to exceed 3000 mg/day, Refills 0, Maintenance, 05/10/25 11:29:00 AM EDT, Partial fill upon patient request if the prescription is for a schedule II opioid drug. Start Date: 05/10/25 Status: Ordered Medication Dispense Status: Completed Total Allowed Fills: 1 Fills Dispensed: 0 atorvastatin 40 mg oral tablet 1 tablet = 40 mg, By Mouth, Daily, # 90 tablet, 0 Refills, Maintenance, 04/24/25 8:56:00 AM EDT, Tablet, Partial fill upon patient request if the prescription is for a schedule II opioid drug. Start Date: 04/24/25 Status: Ordered Medication Dispense Status: Completed Quantity: 90.0 Unit: tablet Total Allowed Fills: 1 Fills Dispensed: 0 CeleBREX 200 mg oral capsule 1 capsule = 200 mg, By Mouth, Daily, 0 Refills, Maintenance, 05/10/25 5:47:00 AM EDT, Partial fill upon patient request if the prescription is for a schedule II opioid drug. Start Date: 05/10/25 Status: Ordered Medication Dispense Status: Completed Total Allowed Fills: 1 Fills Dispensed: 0 docusate sodium 100 mg oral capsule 100 mg, 1, capsule, By Mouth, 2 times a day, # 60 capsule, Refills 0, Tot. Refills 0, Maintenance, 08/24/25 10:15:00 AM EDT, Route to Pharmacy Electronically, [facility], Partial fill upon patient request if the prescription is for a schedule II opioid drug., 150, cm, 08/24/25 6:20:00 E DT, Height, 80.9, kg, 08/23/25 14:29:00 EDT, Dry Weight Start Date: 08/24/25 Status: Ordered Medication Dispense Status: Completed Quantity: 60.0 Unit: capsule Total Allowed Fills: 1 Fills Dispensed: 0 Ecotrin 325 mg oral delayed release tablet 1 tablet = 325 mg, By Mouth, 2 times a day, # 60 tablet, 0 Refills, Maintenance, 08/24/25 10:15:00 AM EDT, EC Tablet, [facility], Partial fill upon patient request if the prescription isfor a schedule II opioid drug., 150, cm, 08/24/25 6:20:00 EDT, Height, 80.9, kg, 08/23/25 14:29:00 EDT, Dry Weight Start Date: 08/24/25 Stop Date: 09/23/25 Status: Ordered Medication Dispense Status: Completed Quantity: 60.0 Unit: tablet Total Allowed Fills: 1 Fills Dispensed: 0 FreeStyle Vahid 2 Monitor See Instructions, # 1 each, Maintenance, use to check BGs. E11.9, 05/11/23 10:26:00 AM EDT, Supply, 149.86, cm, 05/11/23 9:53:00 EDT, Height Start Date: 05/11/23 Status: Ordered Medication Dispense Status: Completed Quantity: 1.0 Unit: each Total Allowed Fills: 1 Fills Dispensed: 0 FreeStyle Vahid 2 Sensors See Instructions, # 2 each, Refills 11, Tot. Refills 11, Maintenance, Change every 14 days. E11.9, 06/20/23 12:58:00 PM EDT, Supply, 149.86, cm, 05/11/23 9:53:00 EDT, Height Start Date: 06/20/23 Status: Ordered Medication Dispense Status: Completed Quantity: 2.0 Unit: each Total Allowed Fills: 12 Fills Dispensed: 0 glipiZIDE 5 mg oral tablet, extended release 1 tablet = 5 mg, By Mouth, Daily, # 30 tablet, 0 Refills, Maintenance, 08/09/25 4:18:00 PM EDT, ER Tablet, Partial fill upon patient request if the prescription is for a schedule II opioid drug. Start Date: 08/09/25 Status: Ordered Medication Dispense Status: Completed Quantity: 30.0 Unit: tablet Total Allowed Fills: 1 Fills Dispensed: 0 lisinopril 10 mg oral tablet 10 mg, 1, tablet, By Mouth, Daily, # 30 tablet, Refills 0, Maintenance, 04/13/23 8:49:00 AM EDT, Partial fill upon patient request if the prescription is for a schedule II opioid drug. Start Date: 04/13/23 Status: Ordered Medication Dispense Status: Completed Quantity: 30.0 Unit: tablet Total Allowed Fills: 1 Fills Dispensed: 0 Magnesium Citrate By Mouth, 0 Refills, Maintenance, 04/24/25 8:57:00 AM EDT, Partial fill upon patient request if the prescription is for a schedule II opioid drug. Start Date: 04/24/25 Status: Ordered Medication Dispense Status: Completed Total Allowed Fills: 1 Fills Dispensed: 0 MiraLax Powder 1 pack/packet = 17 Gm, By Mouth, Daily, PRN Constipation, 0 Refills, Maintenance, 08/24/25 10:18:00 AM EDT, Powder, Partial fill upon patient request if the prescription is for a schedule II opioid drug. Start Date: 08/24/25 Status: Ordered Medication Dispense Status: Completed Total Allowed Fills: 1 Fills Dispensed: 0 Ozempic 2 mg/3 mL (0.25 mg or 0.5 mg dose) subcutaneous solution See Instructions, Start Ozempic 0.25mg once weekly for the first 4 weeks, and then for the following 4 weeks take 0.5mg once weekly. E11.9, # 3 mL, 3 Refills, Maintenance, 02/24/24 2:23:00 PM EDT, Solution, [facility] #[id number], Partial fill upon patient request if the prescription is for a schedule II opioid drug., 149.86, cm, 05/11/23 9:53:00 EDT, Height Start Date: 02/24/24 Status: Ordered Medication Dispense Status: Completed Quantity: 3.0 Unit: mL Total Allowed Fills: 4 Fills Dispensed: 0 pantoprazole 40 mg oral delayed release tablet = 40 mg, By Mouth, Daily, # 30 tablet, 0 Refills, Maintenance, 08/24/25 10:16:00 AM EDT, EC Tablet, 150, cm, 08/24/25 6:20:00 EDT, Height, 80.9, kg, 08/23/25 14:29:00 EDT, Dry Weight Start Date: 08/24/25 Stop Date: 09/23/25 Status: Ordered Medication Dispense Status: Completed Quantity: 30.0 Unit: tablet Total Allowed Fills: 1 Fills Dispensed: 0 senna 187 mg oral tablet 1 tablet = 8.6 mg, By Mouth, Daily at bedtime, PRN as needed for constipation, 0 Refills, Maintenance, 08/24/25 10:18:00 AM EDT, Tablet, Partial fill upon patient request if the prescription is for a schedule II opioid drug. Start Date: 08/24/25 Status: Ordered Medication Dispense Status: Completed Total Allowed Fills: 1 Fills Dispensed: 0 Vitafusion Fiber Well + Probiotics Gummies By Mouth, Daily, 0 Refills, Maintenance, 04/24/25 8:57:00 AM EDT, Partial fill upon patient request if the prescription is for a schedule II opioid drug. Start Date: 04/24/25 Status: Ordered Medication Dispense Status: Completed Total Allowed Fills: 1 Fills Dispensed: 0 Problem List Condition Confirmation Course Effective Dates Status Health St atus Informant Diabetes Confirmed Active HTN (hypertension) Confirmed Active Severe obesity (BMI 35.0-39.9) with comorbidity Confirmed Active Smoker Confirmed Active Social History Social History Type Response Smoking Status 5-9 cigarettes (betw een 1/4 to 1/2 pack)/day in last 30 days entered on: 04/24/25 Sex Sex Representation Female (finding) Patient Care team information Care Team Personnel Name: Kyle Ling RN Position: [facility] RN Member Role: Primary Care Nurse Name: Braden Scott MD Position: [facility] Outreach Member Role: PCP Address: [address] [place] [id number] [[email or web address]] Telecom: Name: Carrie Koenig RN Position: [facility] RN Member Role: Primary Care Nurse Care Team Related Persons Name: RAFFY LYNNE Name: TRE CONDE Insurance Providers Guarantor name: NA Health Plan Information #: 1 Payer: [employer] Payer Identifier: [place] Member Number: [id number] Group Number: [id number] Subscriber Identifier: NA Relationship to Subscriber: self Coverage Type: NA Coverage Verification Date: NA Telecom: NA Address:
== END 2025-09-24 15:56 | disposition home or self-care (01) ==
LOC: HO.LAB 15:55
PROVIDERS: PCP Family Medicine
DX: N30.01 Acute cystitis with hematuria (principal); L03.012 Cellulitis of left finger; B37.31 Acute candidiasis of vulva and vagina
CPT/HCPCS: 81003; 87086; 99212

== ENCOUNTER 2025-11-07 08:43 | Outpatient (AMB) | payer OTHER, SELFPAY ==
--- NOTE | 2025-11-07 08:51 | MHC.PC.OV ---
Vital Signs 11/07/25 08:55 Height 4 ft 11 in Weight 186 lb 4 oz BMI 37.6 BP 128/78 Blood Pressure Location Rt brachial Position Sitting Respiration 18 Pulse 87 Pulse Source Pulse Oximeter Temp 98.2 F Temp Source Oral Pulse Oximetry (%) 99 Oxygen Delivery Method Room Air Intake Visit Reasons: f/u DM Intake Note: Patient present for DM follow up. Accompanied by: Self / Same As Patient Allergies No Known Allergies Allergy (Verified 11/07/25 08:53) Medication List - Last Reconciled 11/07/25 by Braden Scott MD acetaminophen 1,000 mg PO Q8H aspirin 325 mg PO BID atorvastatin 40 mg PO DAILY 90 days blood sugar diagnostic (FreeStyle Lite Strips) DX: E11.9. Test Blood Sugar Twice A Day. 90 day supply blood-glucose meter As directed cefuroxime axetil 500 mg PO Q12H celecoxib 200 mg PO DAILY cholecalciferol (vitamin D3) (Vitamin D3) 25 mcg PO DAILY docusate sodium 100 mg PO BID dulaglutide 1.5 mg (0.5 mL) subcut QWEEK 28 days flash glucose scanning reader (FreeStyle Vahid 2 [place]) To monitor glucose, As directed, 999 days flash glucose sensor (FreeStyle Vahid 2 Sensor kit) To monitor blood sugar continuously for 14 days, As directed fluconazole 150 mg PO Q3D FreeStyle Vahid 2 Plus Sensor (blood-glucose sensor) every 15 days NS glipizide ER 5 mg PO QAM 90 days lancets glucose checks 2 times daily and as needed for s/s of dm lisinopril 10 mg PO DAILY oxycodone 5 mg PO Q4H PRN pantoprazole 40 mg PO DAILY tramadol 50 - 100 mg PO Q6H Tobacco use date assessed: 08/01/25 Dental Screening Dental Screen Date: 08/01/25 HPI f/u DM HPI Details 50 y/o female presents to f/u diabetes. Last A1c July 6.3%. She is on Trulicity 0.75mg, glipizide 5mg. A1c today 9.7%. Had been out of her Trulicity but had restarted this about 4 weeks ago. Blood pressure today 128/78, 87p. She is on lisinopril 10mg daily. Continues to see orthopedics for her knees. Continues her physical therapy. HPI Comments History of Present Illness Details Documentation assistance for Braden Scott MD, was provided by Wei Graham,? Geotechnical Operating Engineer on 11/07/2025 at 9:02 AM EST. I, Dr. Scott, have read, observed, and verified documentation. [facility] Medical History Hyperlipidemia Hypertension Diabetes Arthritis of both knees Surgical History S/P trigger finger release History of cholecystectomy History of tubal ligation History of section Family History Father Medical history unknown Mother Hypertension Son Asthma Social History (Updated 11/07/25 @ 08:54 by Con Mireles CMA) Housing: House Alcohol intake: current Comment: ocasionally Patient Tobacco Use Status: Current everyday Tobacco user Cigarettes Per Day: 7 e-Cigarette/Vaping Use: Never Used Second Hand Smoke Exposure: No service: No Current occupational status: employed 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 1. Little interest or pleasure in doing things: not at all 2. Feeling down, depressed, or hopeless: not at all 3. Trouble falling or staying asleep, or sleeping too much: more than half the days 4. Feeling tired or having little energy: several days 5. Poor appetite or overeating: several days 6. Feeling bad about yourself - or that you are a failure or have let yourself or your family down: not at all 7. Trouble concentrating on things, such as reading the newspaper or watching television: several days 8. Moving or speaking so slowly that other people could have noticed. Or the opposite - being so fidgety or restless that you have been moving around a lot more than usual: not at all 9. Thoughts that you would be better off or of hurting yourself in some way: not at all Total score: 5 Depression Screening Interpretation: Negative Depression Screening Done: Yes 99249 - PHQ-9 Billing: Yes Source: Developed by Drs. Delfina Peters, Gurinder Bradley and colleagues, with an educational niki from [employer]. Thrive Questionnaire Date Thrive assessed: 01/16/25 I am a: Patient What is your living situation today?: I have a steady place to live Within the past 12 months, did the food you bought not last and you didn't have the money to get more?: I choose not to answer this question Within the past 12 months, did you worry whether your food would run out before you got money to buy more?: I choose not to answer this question Do you have trouble paying for medicines?: I choose not to answer this question Do you have trouble getting transportation to medical appointments?: I choose not to answer this question Do you have trouble paying your heating and electricity bill?: I choose not to answer this question Do you have trouble taking care of your child, family member or friend?: No Do you have trouble with day-to-day activities such as bathing, preparing meals, shopping, managing finances, etc.?: I choose not to answer this question Are you currently unemployed and looking for a job?: I choose not to answer this question Are you interested in more education?: Yes Currently or been in a relationship where the following occur: No concerns reported THRIVE Score: 0 AUDIT C Alcohol Use Questionnaire (AUDIT-C) 1. How often do you have a drink containing alcohol?: 2-4 times a month 2. How many drinks containing alcohol do you have on a typical day when you are drinking?: 1 or 2 3. How often do you have six or more drinks on one occasion?: Never Total Score: 2 YARIEL-7 AMB Questionnaire YARIEL-7 Date YARIEL - 7 assessed: 03/12/24 Source: Developed by Drs. Scar Boone, Delfina Marquis, Gurinder Bradley and colleagues, with an educational niki from [employer]. Review of Systems Const Denies chills, Denies fatigue, Denies fever(s), Denies headache(s) and Denies weakness ENT Denies dizziness and Denies headache(s) Card Denies dyspnea Resp Denies cough, Denies dyspnea, Denies wheezing and Denies other (shortness of breath) Musc Denies numbness and Denies tingling Neuro Denies dizziness, Denies headache(s), Denies numbness, Denies tingling and Denies weakness Psych Denies anxiety and Denies depression Endo Denies fatigue Aller/Immun Denies wheezing Physical exam (Primary Care) Vital Signs: Last Vital Signs Temp 98.2 F 11/07/25 08:55 Pulse 87 11/07/25 08:55 Resp 18 11/07/25 08:55 BP 128/78 11/07/25 08:55 Pulse Ox 99 11/07/25 08:55 Oxygen Delivery Method Room Air 11/07/25 08:55 BMI result Body Mass Index 37.6 Tobacco/Smoking Status: Tobacco use Status Tobacco use date assessed 08/01/25 11/07/25 08:58 Patient Tobacco Use Status Current everyday Tobacco 11/07/25 08:58 e-Cigarette/Vaping Use Never Used 11/07/25 08:58 PHQ-9: PHQ-9 Score PHQ-9: Total score 5 11/07/25 09:19 Depression Screening Interpretation: Negative Thrive Assessment: Date of Thrive Assessment Date Thrive assessed 01/16/25 11/07/25 08:58 Currently or been in a relationship where the following occur: No concerns reported Const General: well developed; No acute distress Nutritional Appearance: well nourished Orientation/consciousness: patient oriented x3 HENMT Head: Yes normocephalic and Yes atraumatic Eyes General: appearance normal, both eyes and all related structures Pupils: Equal, round and reactive pupils present EOM: EOMs intact bilaterally Resp Effort & Inspection: normal respiratory effort Auscultation: clear to auscultation bilaterally Cardio Rate: regular rate Rhythm: regular rhythm Heart sounds: S1 normal heart sound present, S2 normal heart sound present, no gallops, no murmurs and no rubs Neuro General: patient oriented x3 and gait normal Cranial nerves: Yes Equal, round and reactive pupils present Psych Affect: normal affect Results AMB Hemoglobin A1c AMB Hemoglobin A1c 9.7 % Last Edit by Con Mireles CMA on 11/07/25 09:21 Coding Level of Care Code Est Pt Level 4 (18111) Diagnoses Diabetes E11.9 Hypertension I10 Obesity (BMI 30-39.9) E66.9 Knee pain M25.569 Additional Codes PHQ-9 - 37730 - PHQ-9 Billing: Yes ([id number]) Assessment & Plan Assessment & Plan (1) Diabetes: Code(s): E11.9 - Type 2 diabetes mellitus without complications Category: Medical Plan: A1c has climbed to 9.7%. Uncontrolled diabetes. Goal is less than 7.0% Continue glipizide as prescribed Will increase dulaglutide to 1.5 mg weekly She has not been able to get a GLP 1 medication. Has been gaining weight Will refer her to endocrinology as well (2) Hypertension: Code(s): I10 - Essential (primary) hypertension Category: Medical Plan: Blood pressure has increased with her weight gain. Still at goal less than 140/90 Continue current medication Work at weight loss (3) Obesity (BMI 30-39.9): Code(s): E66.9 - Obesity, unspecified Category: Medical Plan: Patient has been gaining weight No longer on GLP 1 medication She would like a referral to weight management - referred (4) Knee pain: Code(s): M25.569 - Pain in unspecified knee Category: Medical Plan: S/p b/L knee replacements Continue physical therapy Follow-up if any pain Orders: Orders AMB Hemoglobin A1c Today Z13.9 - Encounter for screening, unspecified Referrals Endocrinology Referral E11.65 - Type 2 diabetes mellitus with hyperglycemia Medical Weight Management Referral E11.65 - Type 2 diabetes mellitus with hyperglycemia, E66.812 - Obesity, class 2, M17.0 - Bilateral primary osteoarthritis of knee, Z68.37 - Body mass index [BMI] 37.0-37.9, adult Medications: Changed From dulaglutide (Trulicity) 0.75 mg (0.5 mL) subcut QWEEK 28 days 2 mL 3RF E11.9 - Type 2 diabetes mellitus without complications To dulaglutide 1.5 mg (0.5 mL) subcut QWEEK 2 mL 3RF 28 days E11.9 - Type 2 diabetes mellitus without complications Refilled glipizide ER 5 mg PO QAM 90 tabs 3RF 90 days
[2025-11-07 08:55] VITALS: BP 128/78; PULSE 87; RESP 18; TEMP 36.8; O2SAT 99; BMI 37.6
== END 2025-11-07 09:23 | disposition home or self-care (01) ==
LOC: HO.HMCFM 08:44
PROVIDERS: PCP Family Medicine; Visit Provider Family Medicine
DX: E11.9 Type 2 diabetes mellitus without complications (principal); I10 Essential (primary) hypertension; E66.9 Obesity, unspecified; Z68.37 Body mass index [BMI] 37.0-37.9, adult; M25.569 Pain in unspecified knee

== ENCOUNTER → 2025-11-07 08:43 | Outpatient (BNVA) | payer OTHER, SELFPAY | PROVIDERS: PCP Family Medicine; Visit Provider Family Medicine | DX: E11.9 Type 2 diabetes mellitus without complications (principal); I10 Essential (primary) hypertension; E66.9 Obesity, unspecified; M25.561 Pain in right knee; M25.562 Pain in left knee; E66.812 Obesity, class 2; Z68.37 Body mass index [BMI] 37.0-37.9, adult; M17.0 Bilateral primary osteoarthritis of knee; Z13.31 Encounter for screening for depression | CPT/HCPCS: 83036; 96127; 99212 ==